=== PATIENT | female | born 1970 | race Caucasian/White ===

== ENCOUNTER 2018-07-31 18:07 | Emergency (ER) | payer OTHER ==
[2018-07-31 18:13] VITALS: BP 126/76; PULSE 91; TEMP 97.6; BMI 21.3
[2018-07-31] MEDS ORDERED: FAMOTIDINE 20 MG/50 ML IVPB 20 MG/50 ML MG IVPB ONE ×2 (19:01→19:06)
[2018-07-31] MEDS ORDERED: ONDANSETRON 4 MG/2 ML VIAL IVPB ONE (19:01)
[2018-07-31 19:02] LABS: BASO % 0.1 % (0-2.0); HEMOGLOBIN 14.7 GM/dl (10.7-15.3); LYMPH % 7.2 % (8-40); MCH 29.6 pg (25.7-33.7); MCHC 33.5 g/dl (32.0-36.0); MEAN CELL VOLUME 88.3 fl (80-96); MEAN PLT VOLUME 8.9 fl (7.5-11.1); MONO % 8.2 % (3.8-10.2); NEUT % 84.5 % (42.8-82.8); PLATELET COUNT 238 K/MM3 (134-434); RBC 4.98 M/mm3 (3.60-5.2); RDW 12.7 % (11.6-15.6); WHITE BLOOD COUNT 8.4 K/mm3 (4.0-10.8)
--- NOTE | 2018-07-31 19:02 | PDOC ---
History of Present Illness - General History Source: Patient Exam Limitations: No Limitations - History of Present Illness Initial Comments: 07/31/18 19:48 The patient is a 47 year old female with no pertinent past medical history who presents to the ED with complaints of epigastric pain, nausea, and vomiting since yesterday. She describes the pain as a crampy, gassy pain that is non- radiating and denies any modifying factors. She reports having loose stools today and reports associated tactile fevers and weakness earlier. Denies any recent travel or sick contacts but is concerned she may have gotten food poisoning. She denies any cough, SOB, chest pain. Reports associated dysuria but denies any other associated urinary complaints. <Carissa Ly - Last Filed: 07/31/18 19:48> - General History Source: Patient Exam Limitations: No Limitations <Javier Bhatti - Last Filed: 07/31/18 20:43> - General Chief Complaint: Nausea/Vomiting Stated Complaint: VOMITING,ABDOMINAL PAIN,HEAD ACHE,BODY ACHES Time Seen by Provider: 07/31/18 19:00 Past History <Carissa Ly - Last Filed: 07/31/18 19:48> - Past Medical History COPD: No Other medical history: pt denies - Surgical History Appendectomy: Yes - Suicide/Smoking/Psychosocial Hx Smoking History: Never smoked Have you smoked in the past 12 months: No Hx Alcohol Use: No Drug/Substance Use Hx: No Substance Use Type: None <Javier Bhatti - Last Filed: 07/31/18 20:43> - Past Medical History Allergies/Adverse Reactions: Allergies Allergy/AdvReac Type Severity Reaction Status Date / Time No Known Allergies Allergy Verified 07/31/18 18:08 Home Medications: Ambulatory Orders Acetaminophen [Tylenol] 650 mg PO Q4H PRN #20 tablet 07/31/18 Famotidine [Pepcid] 20 mg PO BID PRN #20 tablet 07/31/18 Ondansetron HCl [Zofran] 4 mg PO Q8H PRN #15 tablet 07/31/18 Review of Systems - Review of Systems Able to Perform ROS?: Yes Comments:: 07/31/18 19:49 GENERAL/CONSTITUTIONAL: (+) tactile fever, weakness No chills. HEAD, EYES, EARS, NOSE AND THROAT: No change in vision. No ear pain or discharge. No sore throat. CARDIOVASCULAR: No chest pain or shortness of breath. RESPIRATORY: No cough, wheezing, or hemoptysis. GASTROINTESTINAL: (+) nausea, vomiting, diarrhea, epigastric pain. No constipation. GENITOURINARY: (+) Dysuria. No frequency, or change in urination. MUSCULOSKELETAL: No joint or muscle swelling or pain. No neck or back pain. SKIN: No rash NEUROLOGIC: No headache, vertigo, loss of consciousness, or change in strength/ sensation. ENDOCRINE: No increased thirst. No abnormal weight change. HEMATOLOGIC/LYMPHATIC: No anemia, easy bleeding, or history of blood clots. ALLERGIC/IMMUNOLOGIC: No hives or skin allergy. All Other Systems: Reviewed and Negative <Carissa Ly - Last Filed: 07/31/18 19:48> *Physical Exam - Vital Signs Last Vital Signs Temp Pulse Resp BP Pulse Ox 97.6 F 91 H 18 126/76 99 07/31/18 18:08 07/31/18 18:08 07/31/18 18:08 07/31/18 18:08 07/31/18 18:08 - Physical Exam Comments: 07/31/18 19:54 GENERAL: Awake, alert, and fully oriented, in no acute distress HEAD: No signs of trauma EYES: PERRLA, EOMI, sclera anicteric, conjunctiva clear ENT: Auricles normal inspection, hearing grossly normal, nares patent, oropharynx clear without exudates. Moist mucosa NECK: Normal ROM, supple, no lymphadenopathy, JVD, or masses LUNGS: Breath sounds equal, clear to auscultation bilaterally. No wheezes, and no crackles HEART: Regular rate and rhythm, normal S1 and S2, no murmurs, rubs or gallops ABDOMEN: Soft, mild epigastric tenderness on palpation, negative colin's sign, normoactive bowel sounds. No guarding, no rebound. No masses EXTREMITIES: Normal range of motion, no edema. No clubbing or cyanosis. No cords, erythema, or tenderness NEUROLOGICAL: Cranial nerves II through XII grossly intact. Normal speech, normal gait SKIN: Warm, Dry, normal turgor, no rashes <Carissa Ly - Last Filed: 07/31/18 19:48> - Vital Signs Last Vital Signs Temp Pulse Resp BP Pulse Ox 97.6 F 91 H 18 126/76 99 07/31/18 18:08 07/31/18 18:08 07/31/18 18:08 07/31/18 18:08 07/31/18 18:08 <Javier Bhatti - Last Filed: 07/31/18 20:43> Heart Score/ECG Review #1 ECG reviewed & interpreted by me at: 19:20 07/31/18 19:23 NSR 87, no gab, TWI V2-V3, nonspecific ST changes V4-V5, normal axis, normal intervals, QTC 433 msec <Javier Bhatti - Last Filed: 07/31/18 20:43> ED Treatment Course - LABORATORY CBC & Chemistry Diagram: 07/31/18 18:41 07/31/18 18:41 - ADDITIONAL ORDERS Additional order review: Laboratory Results 07/31/18 07/31/18 07/31/18 19:09 18:41 18:31 Sodium 131 L Potassium 3.4 L Chloride 100 Carbon Dioxide 24 Anion Gap 7 L BUN 12 Creatinine 0.6 Creat Clearance w eGFR > 60 Random Glucose 127 H D Calcium 8.7 Total Bilirubin 1.2 H AST 31 ALT 53 H Alkaline Phosphatase 80 Troponin I < 0.03 Total Protein 8.0 Albumin 4.3 Urine Color Urine Appearance Urine pH Ur Specific Mclean Urine Protein Urine Glucose (UA) Urine Ketones Urine Blood Urine Nitrite Urine Bilirubin Urine Urobilinogen Ur Leukocyte Esterase Urine HCG, Qual Negative 07/31/18 18:30 Sodium Potassium Chloride Carbon Dioxide Anion Gap BUN Creatinine Creat Clearance w eGFR Random Glucose Calcium Total Bilirubin AST ALT Alkaline Phosphatase Troponin I Total Protein Albumin Urine Color Yellow Urine Appearance Clear Urine pH 5.5 Ur Specific Mclean >= 1.030 H Urine Protein 2+ H Urine Glucose (UA) Negative Urine Ketones 4+ H Urine Blood Negative Urine Nitrite Negative Urine Bilirubin 1+ H Urine Urobilinogen 0.2 Ur Leukocyte Esterase Negative Urine HCG, Qual 07/31/18 18:41 RBC 4.98 MCV 88.3 MCHC 33.5 RDW 12.7 MPV 8.9 Neutrophils % 84.5 H Lymphocytes % 7.2 L Monocytes % 8.2 Eosinophils % 0.0 Basophils % 0.1 - Medications Given in the ED: ED Medications Discontinued Medications Generic Name Dose Route Start Last Admin Trade Name Freq PRN Reason Stop Dose Admin Famotidine/Sodium Chloride 20 mg in 50 mls @ 100 mls/hr 07/31/18 19:01 19:19 Pepcid 20 Mg Premixed Ivpb - IVPB 07/31/18 19:30 100 mls/hr ONCE ONE Administration Ondansetron HCl 4 mg 07/31/18 19:01 07/31/18 19:19 Zofran Injection IVPB 07/31/18 19:02 4 mg ONCE ONE Administration <Carissa Ly - Last Filed: 07/31/18 19:48> - LABORATORY CBC & Chemistry Diagram: 07/31/18 18:41 07/31/18 18:41 - ADDITIONAL ORDERS Additional order review: Laboratory Results 07/31/18 18:31 Urine HCG, Qual Negative <Jackie Bhattiel - Last Filed: 07/31/18 20:43> Medical Decision Making - Medical Decision Making 07/31/18 19:21 A portion of this note was documented by scribe services under my direction. I have reviewed the details of the note, within reason, and agree with the documentation with the following case summary and management plan written by me. Patient treated in the ED. Nursing notes are reviewed and incorporated into the medical decision-making. Vital signs reviewed. Peripheral IV access obtained by the nurse, laboratory studies are drawn and sent, reviewed and interpreted by myself. Vital Signs Temp Pulse Resp BP Pulse Ox 97.6 F 91 H 18 126/76 99 07/31/18 18:08 07/31/18 18:08 07/31/18 18:08 07/31/18 18:08 07/31/18 18:08 47-year-old female with no past medical history presents with nausea, vomiting and loose stool since yesterday. Patient denies sick contacts or recent travels. Thinks she may have gotten ill from her food. Started developing some epigastric discomfort but no midsternal chest pain or shortness of breath. No dyspnea on exertion or diaphoresis. Does endorse some nausea. At one episode loose stools and believes she may have had tactile fevers at home. Reports some mild dysuria. Endorses decreased appetite. Because she felt generally weak she came into the ER. I suspect patient likely has gastritis versus gastroenteritis. Differential includes liver, pancreas, gallbladder pathology though probably less likely. We' ll give IV fluids check labs. Check for cystitis with urine analysis and reassess. 07/31/18 20:38 CBC, BMP 07/31/18 18:41 07/31/18 18:41 CMP Sodium 131 mmol/L (136-145) L 07/31/18 18:41 Potassium 3.4 mmol/L (3.5-5.1) L 07/31/18 18:41 Chloride 100 mmol/L (98-107) 07/31/18 18:41 Carbon Dioxide 24 mmol/L (22-28) 07/31/18 18:41 Anion Gap 7 MMOL/L (8-16) L 07/31/18 18:41 BUN 12 mg/dl (7-18) 07/31/18 18:41 Creatinine 0.6 mg/dl (0.6-1.3) 07/31/18 18:41 Creat Clearance w eGFR > 60 (>60) 07/31/18 18:41 Random Glucose 127 mg/dl (74-106) H D 07/31/18 18:41 Calcium 8.7 mg/dl (8.4-10.2) 07/31/18 18:41 Total Bilirubin 1.2 mg/dl (0.2-1.0) H 07/31/18 18:41 AST 31 U/L (10-42) 07/31/18 18:41 ALT 53 U/L (10-40) H 07/31/18 18:41 Alkaline Phosphatase 80 U/L (32-92) 07/31/18 18:41 Creatine Kinase 85 IU/L (26-192) 07/31/18 18:41 Troponin I < 0.03 ng/ml (0.00-0.06) 07/31/18 19:09 Total Protein 8.0 g/dl (6.4-8.3) 07/31/18 18:41 Albumin 4.3 g/dl (3.5-5.0) 07/31/18 18:41 Lipase 302 U/L (73-393) 07/31/18 18:41 Urine Test Results Urine Color Yellow 07/31/18 18:30 Urine Appearance Clear 07/31/18 18:30 Urine pH 5.5 (4.5-8) 07/31/18 18:30 Ur Specific Mclean >= 1.030 (1.005-1.025) H 07/31/18 18:30 Urine Protein 2+ (NEGATIVE) H 07/31/18 18:30 Urine Glucose (UA) Negative (NEGATIVE) 07/31/18 18:30 Urine Ketones 4+ (NEGATIVE) H 07/31/18 18:30 Urine Blood Negative (NEGATIVE) 07/31/18 18:30 Urine Nitrite Negative (NEGATIVE) 07/31/18 18:30 Urine Bilirubin 1+ (NEGATIVE) H 07/31/18 18:30 Ur Leukocyte Esterase Negative (NEGATIVE) 07/31/18 18:30 Urine RBC 0-2 /hpf (0-3) 07/31/18 18:30 Urine WBC 2-4 (0-5) 07/31/18 18:30 Urine Bacteria Few /hpf (NEGATIVE) 07/31/18 18:30 Urine test negative. The patient reports that she feels significantly better. Blood work is unremarkable but urine shows significant evidence of dehydration. Patient was given 2L of IVF with significant improvement of symptoms. Pt would like to go home. Results given to her. I explained that she should take her ECG to her doctor for follow up as there are nonspecific findings. Pt verbalizes understanding and agrees with plan. Discharge diagnosis: gastritis. I discussed the physical exam findings, ancillary test results and final diagnoses with the patient. I answered all of the patient's questions. The patient was satisfied with the care received and felt comfortable with the discharge plan and treatment plan. The patient will call their primary care physician within 24 hours to arrange follow-up and will return to the Emergency Department with any new, persistant or worsening symptoms. <Javier Bhatti - Last Filed: 07/31/18 20:43> *DC/Admit/Observation/Transfer - Attestations Scribe Attestion: 07/31/18 19:55 Documentation prepared by Carissa Ly, acting as medical delivery driver for Javier Bhatti MD. <Carissa Ly - Last Filed: 07/31/18 19:48> - Discharge Dispostion Decision to Admit order: No <Javier Bhatti - Last Filed: 07/31/18 20:43> Diagnosis at time of Disposition: Gastritis Qualifiers: Gastritis type: unspecified gastritis Chronicity: acute Gastritis bleeding: without bleeding Qualified Code(s): K29.00 - Acute gastritis without bleeding - Discharge Dispostion Disposition: HOME Condition at time of disposition: Improved - Prescriptions Prescriptions: Acetaminophen [Tylenol] 650 mg PO Q4H PRN #20 tablet PRN Reason: Pain/Fever Famotidine [Pepcid] 20 mg PO BID PRN #20 tablet PRN Reason: GERD Ondansetron HCl [Zofran] 4 mg PO Q8H PRN #15 tablet PRN Reason: Vomiting - Patient Instructions Printed Discharge Instructions: DI for Gastritis Additional Instructions: Your blood work is unremarkable. However, you are very dehydrated. Drink plenty of fluids and rest. It may take several more days before your symptoms improve. You have nonspecific findings on your EKG. At this time, you just need to make an appointment with your doctor and follow up. You may take zofran, pepcid, and tylenol if you have worsening symptoms. If you have uncontrollable abdominal pain, chest pain or difficulty breathing, please return to the ER. - Post Discharge Activity Forms/Work/School Notes: Back to Work
[2018-07-31 19:05] LABS: ALBUMIN 4.3 g/dl (3.5-5.0); ALK PHOS 80 U/L (32-92); ANION GAP 7 MMOL/L (8-16); BILIRUBIN,TOTAL 1.2 mg/dl (0.2-1.0); BLOOD UREA NITROGEN 12 mg/dl (7-18); CALCIUM 8.7 mg/dl (8.4-10.2); CHLORIDE 100 mmol/L (98-107); CO2 24 mmol/L (22-28); CREATININE 0.6 mg/dl (0.6-1.3); GLUCOSE,RANDOM 127 mg/dl (74-106); POTASSIUM 3.4 mmol/L (3.5-5.1); SGOT/AST 31 U/L (10-42); SGPT/ALT 53 U/L (10-40); SODIUM 131 mmol/L (136-145)
[2018-07-31] MEDS ORDERED: ONDANSETRON 4 MG/2 ML VIAL ONE ×3 (19:08→19:11)
[2018-07-31 19:11] LABS: PH,URINE 5.5 (4.5-8); URINE APPEARANCE Clear; URINE BILIRUBIN 1+ (NEGATIVE); URINE COLOR Yellow; URINE GLUCOSE (UA) Negative (NEGATIVE); URINE KETONE 4+ (NEGATIVE); URINE LEUK ESTERASE Negative (NEGATIVE); URINE NITRITE Negative (NEGATIVE); URINE PROTEIN 2+ (NEGATIVE); URINE UROBILINOGEN 0.2 (0.2-1.0)
[2018-07-31] MEDS ORDERED: SODIUM CHLORIDE 1,000 ML IV STA (19:47)
[2018-07-31 19:52] LABS: URINE RBC 0-2 /hpf (0-3)
[2018-07-31 19:53] LABS: CALCIUM OXALATE CRYSTALS FEW /hpf (NONE SEEN); URINE BACTERIA FEW /hpf (NEGATIVE)
[2018-07-31 20:22] LABS: LIPASE 302 U/L (73-393)
--- NOTE | 2018-08-02 11:43 | EKG ---
Test Reason : Blood Pressure : / mmHG Vent. Rate : 087 BPM Atrial Rate : 087 BPM P-R Int : 164 ms QRS Dur : 090 ms QT Int : 360 ms P-R-T Axes : 075 087 055 degrees QTc Int : 433 ms POOR DATA QUALITY, INTERPRETATION MAY BE ADVERSELY AFFECTED NORMAL SINUS RHYTHM WITH SINUS ARRHYTHMIA NONSPECIFIC ST AND T WAVE ABNORMALITY ABNORMAL ECG NO PREVIOUS ECGS AVAILABLE Confirmed by MASSIEL GARAY, TENA ([id number]) on 08/02/2018 11:43:04 AM Referred By: KOBY Confirmed By:TENA RANKIN MD
== END 2018-07-31 20:47 | disposition home or self-care (01) ==
LOC: FER 18:07
PROC: 3E033GC Introduction of Other Therapeutic Substance into Peripheral Vein, Percutaneous Approach (ICD-10-PCS; principal; 2018-07-31)
PROC: 3E0337Z Introduction of Electrolytic and Water Balance Substance into Peripheral Vein, Percutaneous Approach (ICD-10-PCS; 2018-07-31)
DX: K29.00 Acute gastritis without bleeding (principal)
CPT/HCPCS: 36415; 80053; 81003; 81015; 82550; 83690; 84484; 84703; 85025; 87077; 87086; 93005; 99283-25; J7030

== ENCOUNTER 2018-08-04 18:17 | Emergency (ER) | payer OTHER ==
[2018-08-04 18:46] VITALS: BP 117/58; PULSE 70; BMI 21.7
[2018-08-04 19:06] VITALS: TEMP 97.9
--- NOTE | 2018-08-04 19:19 | PDOC ---
History of Present Illness - General History Source: Patient Exam Limitations: No Limitations - History of Present Illness Initial Comments: 08/04/18 19:41 The patient is a 47 year old female with no significant past medical history, who presents to the emergency room today complaining of epigastric abdominal pain over the past 4 days and multiple episodes of vomiting and diarrhea this evening. The patient was seen in the ED on 07/31/18 for similar symptoms and was discharged for gastritis - instructed to take pepcid, zofran, and tylenol. She reports multiple episodes of nonbloody nonbilious vomiting (last episode at 5: 45pm) and multiple episodes of diarrhea (last episode approx 5 min ago) that began this evening at work. Denies nausea. Denies fever. Denies recent travel or sick contact. Allergies: Seasonal <Sheba Nieves - Last Filed: 08/04/18 19:48> <Maisha Sommers - Last Filed: 08/05/18 04:20> - General Chief Complaint: Vomiting/Diarrhea Stated Complaint: VOMITING, DIARRHEA Time Seen by Provider: 08/04/18 19:19 Past History <Sheba Nieves - Last Filed: 08/04/18 19:48> - Past Medical History COPD: No GI Disorders: Yes (GASTRITIS) - Surgical History Appendectomy: Yes - Suicide/Smoking/Psychosocial Hx Smoking History: Never smoked Have you smoked in the past 12 months: No Information on smoking cessation initiated: No Hx Alcohol Use: No Drug/Substance Use Hx: No Substance Use Type: None <Maisha Sommers - Last Filed: 08/05/18 04:20> - Past Medical History Allergies/Adverse Reactions: Allergies Allergy/AdvReac Type Severity Reaction Status Date / Time No Known Allergies Allergy Verified 08/04/18 18:18 Home Medications: Ambulatory Orders Acetaminophen [Tylenol] 650 mg PO Q4H PRN #20 tablet 07/31/18 Famotidine [Pepcid] 20 mg PO BID PRN #20 tablet 07/31/18 Ondansetron HCl [Zofran] 4 mg PO Q8H PRN #15 tablet 07/31/18 Cephalexin [Keflex] 500 mg PO BID #10 capsule 08/04/18 Ondansetron [Zofran Odt -] 4 mg SL BID PRN #10 od.tablet 08/04/18 Pantoprazole Sodium [Protonix -] 20 mg PO DAILY #14 tablet.ec 08/04/18 Review of Systems - Review of Systems Able to Perform ROS?: Yes Comments:: 08/04/18 19:42 GENERAL/CONSTITUTIONAL: No fever or chills. No weakness. HEAD, EYES, EARS, NOSE AND THROAT: No change in vision. No ear pain or discharge. No sore throat. CARDIOVASCULAR: No chest pain or shortness of breath. RESPIRATORY: No cough, wheezing, or hemoptysis. GASTROINTESTINAL: +epigastric abdominal pain, +vomiting, +diarrhea.No nausea or constipation. GENITOURINARY: No dysuria, frequency, or change in urination. MUSCULOSKELETAL: No joint or muscle swelling or pain. No neck or back pain. SKIN: No rash NEUROLOGIC: No headache, vertigo, loss of consciousness, or change in strength/ sensation. ENDOCRINE: No increased thirst. No abnormal weight change. HEMATOLOGIC/LYMPHATIC: No anemia, easy bleeding, or history of blood clots. ALLERGIC/IMMUNOLOGIC: No hives or skin allergy. <Sheba Nieves - Last Filed: 08/04/18 19:48> *Physical Exam - Vital Signs Last Vital Signs Temp Pulse Resp BP Pulse Ox 97.9 F 70 18 117/58 L 96 08/04/18 18:17 08/04/18 18:17 08/04/18 18:17 08/04/18 18:17 08/04/18 18:17 - Physical Exam Comments: 08/04/18 19:42 GENERAL: Awake, alert, and fully oriented, in no acute distress HEAD: No signs of trauma EYES: PERRLA, EOMI, sclera anicteric, +Erythematous conjunctiva bilaterally ENT: Auricles normal inspection, hearing grossly normal, nares patent, oropharynx clear without exudates. +dry mucous membranes NECK: Normal ROM, supple, no lymphadenopathy, JVD, or masses LUNGS: Breath sounds equal, clear to auscultation bilaterally. No wheezes, and no crackles HEART: Regular rate and rhythm, normal S1 and S2, no murmurs, rubs or gallops ABDOMEN: Soft, +mild epigastric tenderness. normoactive bowel sounds. No guarding, no rebound. No masses EXTREMITIES: Normal range of motion, no edema. No clubbing or cyanosis. No cords, erythema, or tenderness NEUROLOGICAL: Cranial nerves II through XII grossly intact. Normal speech, normal gait SKIN: Warm, Dry, normal turgor, no rashes or lesions noted. <EzequielSheba - Last Filed: 08/04/18 19:48> - Vital Signs Last Vital Signs Temp Pulse Resp BP Pulse Ox 97.9 F 70 18 117/58 L 96 08/04/18 18:17 08/04/18 18:17 08/04/18 18:17 08/04/18 18:17 08/04/18 18:17 <Maisha Sommers - Last Filed: 08/05/18 04:20> ED Treatment Course - LABORATORY CBC & Chemistry Diagram: 08/04/18 19:00 08/04/18 19:00 - ADDITIONAL ORDERS Additional order review: Laboratory Results 08/04/18 19:00 Sodium 136 Potassium 3.0 L Chloride 98 Carbon Dioxide 28 Anion Gap 10 BUN 8 Creatinine 0.6 Creat Clearance w eGFR > 60 Random Glucose 143 H Calcium 9.1 Total Bilirubin 0.6 AST 26 ALT 36 D Alkaline Phosphatase 78 Total Protein 7.6 Albumin 4.1 <ConradoSheba cutler - Last Filed: 08/04/18 19:48> - LABORATORY CBC & Chemistry Diagram: 08/04/18 19:00 08/04/18 19:00 <Maisha Sommers - Last Filed: 08/05/18 04:20> Progress Note - Progress Note Progress Note: Documentation has been prepared under my direction and personally reviewed by me in its entirety. I attest that this documented accurately reflects all work, treatment, procedures and medical decision making performed by me. <Maisha Sommers - Last Filed: 08/05/18 04:20> Medical Decision Making - Medical Decision Making As noted above, this 47-year-old woman presents with recurrent nausea/vomiting/ diarrhea. Patient was seen with similar symptoms here 4 days ago. Symptoms recurred over the last 48 hours. Exam as noted. Patient received IV fluid hydration (normal saline) as well as Protonix 40 mg IV for burning epigastric pain. Laboratory evaluation notable for potassium level 3.0; otherwise, values were essentially normal. Clinical presentation most consistent with viral gastroenteritis Patient received 20 mEq KCl IV (2 runs of 10 mEq). Patient felt much improved after hydration, Protonix IV and potassium supplementation. Patient discharged with instructions to continue clear liquids and advance diet cautiously. Protonix 20 mg daily prescribed for the next 2 weeks. Patient should rest and not work for the next 2 days (work documentation provided). <Maisha Sommers - Last Filed: 08/05/18 04:20> *DC/Admit/Observation/Transfer - Attestations Scribe Attestion: 08/04/18 19:43 Documentation prepared by ELISSA Hurley, acting as medical record assistant for Maisha Sommers MD. <Sheba Nieves - Last Filed: 08/04/18 19:48> <Maisha Sommers - Last Filed: 08/05/18 04:20> Diagnosis at time of Disposition: Gastroenteritis - Discharge Dispostion Disposition: HOME Condition at time of disposition: Stable - Prescriptions Prescriptions: Ondansetron [Zofran Odt -] 4 mg SL BID PRN #10 od.tablet PRN Reason: Nausea Pantoprazole Sodium [Protonix -] 20 mg PO DAILY #14 tablet.ec - Patient Instructions Printed Discharge Instructions: Viral Gastroenteritis Additional Instructions: clear liquids, advance diet cautiously continue Zofran ODT as needed for nausea Protonix 20mg daily return to ER if vomiting recurs followup with your doctor on Tuesday, Aug 07 No work for the next 2 days - Post Discharge Activity Forms/Work/School Notes: Back to Work
[2018-08-04] MEDS ORDERED: PANTOPRAZOLE SODIUM 40 MG VIAL IVPB ONE (19:35)
[2018-08-04 19:37] LABS: ALBUMIN 4.1 g/dl (3.5-5.0); ALK PHOS 78 U/L (32-92); ANION GAP 10 MMOL/L (8-16); BILIRUBIN,TOTAL 0.6 mg/dl (0.2-1.0); BLOOD UREA NITROGEN 8 mg/dl (7-18); CALCIUM 9.1 mg/dl (8.4-10.2); CHLORIDE 98 mmol/L (98-107); CO2 28 mmol/L (22-28); CREATININE 0.6 mg/dl (0.6-1.3); GLUCOSE,RANDOM 143 mg/dl (74-106); SGOT/AST 26 U/L (10-42); SGPT/ALT 36 U/L (10-40); SODIUM 136 mmol/L (136-145); TOT PROT 7.6 g/dl (6.4-8.3)
[2018-08-04] MEDS ORDERED: PANTOPRAZOLE SODIUM 40 MG VIAL ONE (19:38)
[2018-08-04] MEDS ORDERED: KCL 10 MEQ IVPB 10 MEQ/100 ML INFUS.BAG IVPB ONE ×2 (19:57→20:58)
[2018-08-04] MEDS: KCL 10 MEQ IVPB 10 MEQ/100 ML INFUS.BAG IVPB SCH ×2 (19:59→21:01)
[2018-08-04 20:58] LABS: BASO % 0.3 % (0-2.0); HEMATOCRIT 39.3 % (32.4-45.2); HEMOGLOBIN 13.4 GM/dL (10.7-15.3); LYMPH % 14.5 % (8-40); MCH 29.5 pg (25.7-33.7); MEAN CELL VOLUME 86.6 fl (80-96); MEAN PLT VOLUME 9.2 fl (7.5-11.1); MONO % 6.1 % (3.8-10.2); NEUT % 79.1 % (42.8-82.8); PLATELET COUNT 276 K/MM3 (134-434); RBC 4.54 M/mm3 (3.60-5.2); RDW 13.4 % (11.6-15.6); WHITE BLOOD COUNT 9.2 K/mm3 (4.0-10.0)
== END 2018-08-05 00:04 | disposition home or self-care (01) ==
LOC: FER 18:17
PROC: 3E033GC Introduction of Other Therapeutic Substance into Peripheral Vein, Percutaneous Approach (ICD-10-PCS; principal; 2018-08-04)
DX: K52.9 Noninfective gastroenteritis and colitis, unspecified (principal)
CPT/HCPCS: 36415; 80053; 85025; 99283-25

== ENCOUNTER 2018-08-12 22:23 | Inpatient (IN) | payer OTHER ==
--- NOTE | 2018-08-12 22:34 | PDOC ---
History of Present Illness - General Chief Complaint: Pain Stated Complaint: DIARRHEA, VOMITING Time Seen by Provider: 08/12/18 22:34 History Source: Patient Exam Limitations: No Limitations - History of Present Illness Initial Comments: 08/12/18 22:45 47 year old female with no past medical history presents to Emergency Department for epigastric pain since today. She states her pain is non-radiating , intermittent, radiating to her suprapubic area, no aggravating factors, alleviated by zofran/vomiting. She admits to nausea, vomiting, diarrhea, chest tightness. Denies fever, chills, blood in stool, hematemesis, cough, shortness of breath, weakness, numbness, tingling, visual changes, headache, palpitations. This is her third visit for similar symptoms. 07/31/18 - she presented to the emergency department complaining of epigastric pain, nausea, vomiting, diarrhea. Labs were normal. EKg showed nonspecific changes. UA showed UTI. Pt was discharged with pepcid, zofran, tylenol, keflex. Urine culture grew: Streptococcus Viridans, last dose of Keflex yesterday, pt states she did not miss any doses. 08/04/18 - she presented to the emergency department complaining of epigastric pain, nausea, vomiting. Potassium was 3.0. Potassium was repleted with 20 mEq Kcl IV in two 10 mEq doses. Pt was discharged on protonix and zofran. Abdominal Ultrasound performed 08/10/18 was normal. Allergies - NKDA Past History - Past Medical History Allergies/Adverse Reactions: Allergies Allergy/AdvReac Type Severity Reaction Status Date / Time No Known Allergies Allergy Verified 08/12/18 22:28 Home Medications: Ambulatory Orders NK [No Known Home Medication] 08/13/18 COPD: No GI Disorders: Yes (GASTRITIS) - Surgical History Appendectomy: Yes - Suicide/Smoking/Psychosocial Hx Smoking History: Never smoked Have you smoked in the past 12 months: No Hx Alcohol Use: No Drug/Substance Use Hx: No Substance Use Type: None Review of Systems - Review of Systems Able to Perform ROS?: Yes Comments:: 08/12/18 22:56 General: admits to generalized weakness. denies fever, chills, night sweats. HEENT: denies sore throat, rhinorrhea, ear pain. Heart: admits to chest tightness. denies chest pain, palpitations, syncope, lower extremity swelling, diaphoresis. Respiratory: denies shortness of breath, cough, sputum production, hemoptysis. Abdomen: admits to abdominal pain, nausea, vomiting, diarrhea. denies constipation, blood in stool. : denies dysuria, increased urinary frequency, hematuria, urinary incontinence , flank pain. Back: denies back pain. Musculoskeletal: denies joint pain, muscle pain, joint swelling. Neurological: denies headache, dizziness, numbness, tingling, weakness. Skin: denies rash, laceration, abrasion. *Physical Exam - Vital Signs Last Vital Signs Temp Pulse Resp BP Pulse Ox 97.9 F 122 H 18 85/53 L 97 08/12/18 22:25 08/12/18 22:25 08/12/18 22:25 08/12/18 22:25 08/12/18 22:25 - Physical Exam Comments: 08/12/18 22:57 Constitutional: Well-nourished, Well-developed, appearing stated age. HEENT: head is normocephalic, atraumatic. EOMI. PERRLA. hair loss to bilateral temples. Neck: supple. Full ROM. Heart: regular rhythm. no murmurs, rubs or gallops. Lungs: clear to auscultation bilaterally. no crackles, rhonchi or wheezing. no stridor. Abdomen: soft, nontender. non-distended. normal bowel sounds. no rebound, guarding, masses. Back: no CVA tenderness bilaterally. Extremities: Peripheral pulses intact. No lower extremity edema. Neurological: CN 2-12 grossly intact. Moves all four extremities. Psych: awake, alert, oriented x3. Follows commands. Answers questions appropriately. Heart Score/ECG Review - ECG Impressions Comment:: 08/13/18 00:35 EKg performed at 2358 - rate 115, regular, right axis, normal intervals, flipped T in III/aVF/V4. ED Treatment Course - LABORATORY CBC & Chemistry Diagram: 08/13/18 09:18 08/13/18 09:18 Medical Decision Making - Medical Decision Making 08/12/18 23:28 47 year old female with no past medical history presents to Emergency Department for epigastric pain since today. She states her pain is non-radiating , intermittent, radiating to her suprapubic area, no aggravating factors, alleviated by zofran/vomiting. She admits to nausea, vomiting, diarrhea, chest tightness. Denies fever, chills, blood in stool, hematemesis, cough, shortness of breath, weakness, numbness, tingling, visual changes, headache, palpitations. This is her third visit for similar symptoms. 07/31/18 - she presented to the emergency department complaining of epigastric pain, nausea, vomiting, diarrhea. Labs were normal. EKg showed nonspecific changes. UA showed UTI. Pt was discharged with pepcid, zofran, tylenol, keflex. Urine culture grew: Streptococcus Viridans, last dose of Keflex yesterday, pt states she did not miss any doses. 08/04/18 - she presented to the emergency department complaining of epigastric pain, nausea, vomiting. Potassium was 3.0. Potassium was repleted with 20 mEq Kcl IV in two 10 mEq doses. Pt was discharged on protonix and zofran. Abdominal Ultrasound performed 08/10/18 was normal. Initial Vital Signs Temp Pulse Resp BP Pulse Ox 97.9 F 122 H 18 85/53 L 97 08/12/18 22:25 08/12/18 22:25 08/12/18 22:25 08/12/18 22:25 08/12/18 22:25 Afebrile. Tachycardic, likely secondary to dehydration. Hypotensive, likely secondary to dehydration. No hypoxia on room air. 08/13/18 00:16 CBC WBC 13.9 K/mm3 (4.0-10.0) H 08/12/18 22:44 RBC 5.16 M/mm3 (3.60-5.2) 08/12/18 22:44 Hgb 15.1 GM/dL (10.7-15.3) 08/12/18 22:44 Hct 44.6 % (32.4-45.2) 08/12/18 22:44 MCV 86.6 fl (80-96) 08/12/18 22:44 MCH 29.4 pg (25.7-33.7) 08/12/18 22:44 MCHC 33.9 g/dl (32.0-36.0) 08/12/18 22:44 RDW 13.5 % (11.6-15.6) 08/12/18 22:44 Plt Count 327 K/MM3 (134-434) 08/12/18 22:44 MPV 8.3 fl (7.5-11.1) 08/12/18 22:44 Absolute Neuts (auto) 12.6 K/mm3 (1.5-8.0) H 08/12/18 22:44 Neutrophils % 90.5 % (42.8-82.8) H 08/12/18 22:44 Lymphocytes % 5.5 % (8-40) L D 08/12/18 22:44 Monocytes % 3.7 % (3.8-10.2) L 08/12/18 22:44 Eosinophils % 0.1 % (0-4.5) D 08/12/18 22:44 Basophils % 0.2 % (0-2.0) 08/12/18 22:44 Nucleated RBC % 0 % (0-0) 08/12/18 22:44 Leukocytosis with left shift. CMP Sodium 136 mmol/L (136-145) 08/12/18 22:44 Potassium 4.3 mmol/L (3.5-5.1) 08/12/18 22:44 Chloride 100 mmol/L (98-107) 08/12/18 22:44 Carbon Dioxide 29 mmol/L (21-32) 08/12/18 22:44 Anion Gap 6 MMOL/L (8-16) L 08/12/18 22:44 BUN 10 mg/dL (7-18) 08/12/18 22:44 Creatinine 0.7 mg/dL (0.55-1.3) 08/12/18 22:44 Creat Clearance w eGFR > 60 (>60) 08/12/18 22:44 Random Glucose 125 mg/dL (74-106) H 08/12/18 22:44 Calcium 8.9 mg/dL (8.5-10.1) 08/12/18 22:44 Total Bilirubin 0.7 mg/dL (0.2-1) 08/12/18 22:44 AST 25 U/L (15-37) 08/12/18 22:44 ALT 29 U/L (13-61) 08/12/18 22:44 Alkaline Phosphatase 84 U/L (45-117) 08/12/18 22:44 Total Protein 8.4 g/dl (6.4-8.2) H 08/12/18 22:44 Albumin 4.0 g/dl (3.4-5.0) 08/12/18 22:44 Lipase 398 U/L (73-393) H 08/12/18 22:44 No electrolyte abnormalities. Lipase elevated, 398. Urine test negative. 08/13/18 00:19 Repeat vitals: Vital Signs Temperature 98.2 F 08/13/18 00:14 Pulse Rate 89 08/13/18 00:14 Respiratory Rate 17 08/13/18 00:14 Blood Pressure 106/53 L 08/13/18 00:14 O2 Sat by Pulse Oximetry (%) 98 08/13/18 00:14 Afebrile. Tachycardia resolved with IV fluid hydration. Hypotension improving, will continue to hydrate with IV fluids. No hypoxia on room air. 08/13/18 00:53 I signed the patient out to Dr. Cartagena, who will assume care for the patient while she is in the Emergency Department. *DC/Admit/Observation/Transfer Diagnosis at time of Disposition: Unable to eat, Weight loss Abdominal pain Qualifiers: Abdominal location: unspecified location Qualified Code(s): R10.9 - Unspecified abdominal pain Vomiting Qualifiers: Vomiting type: unspecified Vomiting Intractability: non-intractable Nausea presence: with nausea Qualified Code(s): R11.2 - Nausea with vomiting, unspecified Pancreatitis Qualifiers: Chronicity: acute Pancreatitis type: unspecified pancreatitis type Acute pancreatitis complication: unspecified Qualified Code(s): K85.90 - Acute pancreatitis without necrosis or infection, unspecified - Discharge Dispostion Condition at time of disposition: Guarded Decision to Admit order: Yes - Referrals - Patient Instructions - Post Discharge Activity
[2018-08-12] MEDS ORDERED: ACETAMINOPHEN 1000 MG/100 ML VIAL (NON FORMULARY) IVPB ONE (22:45)
[2018-08-12] MEDS ORDERED: SODIUM CHLORIDE 1,000 ML IV STA (22:45)
[2018-08-12] MEDS ORDERED: ONDANSETRON 4 MG/2 ML VIAL IVPUSH ONE (22:45)
[2018-08-12] MEDS ORDERED: ACETAMINOPHEN INJECTION 100 ML IVPB ONE (22:54)
[2018-08-12] MEDS ORDERED: ONDANSETRON 4 MG/2 ML VIAL ONE ×2 (22:54→22:56)
[2018-08-12 22:58] LABS: BASO % 0.2 % (0-2.0); EOS % 0.1 % (0-4.5); HEMATOCRIT 44.6 % (32.4-45.2); HEMOGLOBIN 15.1 GM/dL (10.7-15.3); LYMPH % 5.5 % (8-40); MCH 29.4 pg (25.7-33.7); MCHC 33.9 g/dl (32.0-36.0); MEAN CELL VOLUME 86.6 fl (80-96); MEAN PLT VOLUME 8.3 fl (7.5-11.1); MONO % 3.7 % (3.8-10.2); NEUT % 90.5 % (42.8-82.8); PLATELET COUNT 327 K/MM3 (134-434); RBC 5.16 M/mm3 (3.60-5.2); RDW 13.5 % (11.6-15.6); WHITE BLOOD COUNT 13.9 K/mm3 (4.0-10.0)
[2018-08-12 23:23] LABS: ALK PHOS 84 U/L (45-117); ANION GAP 6 MMOL/L (8-16); BILIRUBIN,TOTAL 0.7 mg/dL (0.2-1); BLOOD UREA NITROGEN 10 mg/dL (7-18); CALCIUM 8.9 mg/dL (8.5-10.1); CHLORIDE 100 mmol/L (98-107); CO2 29 mmol/L (21-32); CREATININE 0.7 mg/dL (0.55-1.3); GLUCOSE,RANDOM 125 mg/dL (74-106); LIPASE 398 U/L (73-393); POTASSIUM 4.3 mmol/L (3.5-5.1); SGOT/AST 25 U/L (15-37); SGPT/ALT 29 U/L (13-61); SODIUM 136 mmol/L (136-145); TOT PROT 8.4 g/dl (6.4-8.2)
[2018-08-13] MEDS ORDERED: SODIUM CHLORIDE 1,000 ML IV STA (00:20)
--- NOTE | 2018-08-13 00:55 | PDOC ---
*Physical Exam - Vital Signs Last Vital Signs Temp Pulse Resp BP Pulse Ox 98.2 F 89 17 106/53 L 98 08/13/18 00:14 08/13/18 00:14 08/13/18 00:14 08/13/18 00:14 08/13/18 00:14 08/13/18 00:50 Care endorsed to me by Dr. Son at the end of her shift. 47 YOF with no PMH, seen on 07/31 for epigastric pain, n/v/d, given GI meds, diagnosed with UTI, given a course of Keflex and finished yesterday. Returned to ED with same AP/n/ v on 08/04, given GI medications, DC'ed home. Returned today with same epigastric pain, n/v/d. EKG showing sinus tach, rate 115, right axis deviation, right atrial dilatation pattern, [id number]. no MEGAN. Received IVF, Zofran, now awaiting CT scan, RUQ US. Likely needs admitted given bouncebacks and abnormal EKG. ED Treatment Course - LABORATORY CBC & Chemistry Diagram: 08/12/18 22:44 08/12/18 22:44 - ADDITIONAL ORDERS Additional order review: Laboratory Results 08/12/18 08/12/18 08/12/18 23:12 23:12 22:44 Sodium Potassium Chloride Carbon Dioxide Anion Gap BUN Creatinine Creat Clearance w eGFR Random Glucose Calcium Total Bilirubin AST ALT Alkaline Phosphatase Total Protein Albumin Lipase TSH 0.98 Urine Color Cancelled Urine Appearance Cancelled Urine pH Cancelled Ur Specific [place] Cancelled Urine Protein Cancelled Urine Glucose (UA) Cancelled Urine Ketones Cancelled Urine Blood Cancelled Urine Nitrite Cancelled Urine Bilirubin Cancelled Urine Urobilinogen Cancelled Ur Leukocyte Esterase Cancelled Urine HCG, Qual Negative 08/12/18 22:44 Sodium 136 Potassium 4.3 Chloride 100 Carbon Dioxide 29 Anion Gap 6 L BUN 10 Creatinine 0.7 Creat Clearance w eGFR > 60 Random Glucose 125 H Calcium 8.9 Total Bilirubin 0.7 AST 25 ALT 29 Alkaline Phosphatase 84 Total Protein 8.4 H Albumin 4.0 Lipase 398 H TSH Urine Color Urine Appearance Urine pH Ur Specific [place] Urine Protein Urine Glucose (UA) Urine Ketones Urine Blood Urine Nitrite Urine Bilirubin Urine Urobilinogen Ur Leukocyte Esterase Urine HCG, Qual 08/12/18 22:44 RBC 5.16 MCV 86.6 MCHC 33.9 RDW 13.5 MPV 8.3 Neutrophils % 90.5 H Lymphocytes % 5.5 L D Monocytes % 3.7 L Eosinophils % 0.1 D Basophils % 0.2 - Medications Given in the ED: ED Medications Discontinued Medications Generic Name Dose Route Start Last Admin Trade Name Gayatri PRN Reason Stop Dose Admin Acetaminophen 1,000 mg 08/12/18 22:45 08/12/18 23:00 Ofirmev Injection - IVPB 08/12/18 22:46 1,000 mg ONCE ONE Administration Sodium Chloride 1,000 mls @ 1,000 mls/hr 08/12/18 22:45 08/12/18 23:00 Normal Saline - IV 08/12/18 23:44 1,000 mls/hr ASDIR STA Administration Ondansetron HCl 4 mg 08/12/18 22:45 08/12/18 23:00 Zofran Injection IVPUSH 08/12/18 22:46 4 mg ONCE ONE Administration Medical Decision Making - Medical Decision Making Vital Signs Temperature 98.2 F 08/13/18 00:14 Pulse Rate 89 08/13/18 00:14 Respiratory Rate 17 08/13/18 00:14 Blood Pressure 106/53 L 08/13/18 00:14 O2 Sat by Pulse Oximetry (%) 98 08/13/18 00:14 08/13/18 02:36 Patient does not want contrast CT, concerned about risks. Ordered is non-con CT A/P. Gave urine sample for UA (first was insufficient quantity). 08/13/18 03:13 CT images back for the patient. Bladder looks enlarged for the patient having recently urinated (she did <10 minutes before images taken). Zosyn ordered as there is possibility of RLL PNA based on finding of mild consolidation on CT. Also nonspecific pelvic free fluid on CT. Laboratory Tests 08/12/18 08/12/18 08/12/18 22:44 22:44 22:44 WBC 13.9 H RBC 5.16 Hgb 15.1 Hct 44.6 MCV 86.6 MCH 29.4 MCHC 33.9 RDW 13.5 Plt Count 327 MPV 8.3 Absolute Neuts (auto) 12.6 H Neutrophils % 90.5 H Lymphocytes % 5.5 L D Monocytes % 3.7 L Eosinophils % 0.1 D Basophils % 0.2 Nucleated RBC % 0 Sodium 136 Potassium 4.3 Chloride 100 Carbon Dioxide 29 Anion Gap 6 L BUN 10 Creatinine 0.7 Creat Clearance w eGFR > 60 Random Glucose 125 H Calcium 8.9 Total Bilirubin 0.7 AST 25 ALT 29 Alkaline Phosphatase 84 Total Protein 8.4 H Albumin 4.0 Lipase 398 H TSH 0.98 Urine Color Urine Appearance Urine pH Ur Specific [place] Urine Protein Urine Glucose (UA) Urine Ketones Urine Blood Urine Nitrite Urine Bilirubin Urine Urobilinogen Ur Leukocyte Esterase Urine HCG, Qual 08/12/18 08/12/18 08/13/18 23:12 23:12 02:20 WBC RBC Hgb Hct MCV MCH MCHC RDW Plt Count MPV Absolute Neuts (auto) Neutrophils % Lymphocytes % Monocytes % Eosinophils % Basophils % Nucleated RBC % Sodium Potassium Chloride Carbon Dioxide Anion Gap BUN Creatinine Creat Clearance w eGFR Random Glucose Calcium Total Bilirubin AST ALT Alkaline Phosphatase Total Protein Albumin Lipase TSH Urine Color Cancelled Colorless Urine Appearance Cancelled Clear Urine pH Cancelled 7.0 Ur Specific [place] Cancelled 1.001 L Urine Protein Cancelled Negative Urine Glucose (UA) Cancelled Negative Urine Ketones Cancelled Negative Urine Blood Cancelled Negative Urine Nitrite Cancelled Negative Urine Bilirubin Cancelled Negative Urine Urobilinogen Cancelled Negative Ur Leukocyte Esterase Cancelled Negative Urine HCG, Qual Negative 08/13/18 03:50 The Pt is unsafe for discharge at this time. They require further hospital observation, workup, and treatment. Microblog sent to [facility] for admission. Blank Decision to Admit order is placed per ED protocol. 08/13/18 04:03 Spoke with Sonny Andrew, in agreement Pt to be admitted. Decision to Admit order corrected with admitting team covering attendings name. Repeat EKG has been ordered already. Repeat vitals pending. Also ordered CXR. *DC/Admit/Observation/Transfer Diagnosis at time of Disposition: Unable to eat, Weight loss Abdominal pain Qualifiers: Abdominal location: unspecified location Qualified Code(s): R10.9 - Unspecified abdominal pain Vomiting Qualifiers: Vomiting type: unspecified Vomiting Intractability: non-intractable Nausea presence: with nausea Qualified Code(s): R11.2 - Nausea with vomiting, unspecified Pancreatitis Qualifiers: Chronicity: acute Pancreatitis type: unspecified pancreatitis type Acute pancreatitis complication: unspecified Qualified Code(s): K85.90 - Acute pancreatitis without necrosis or infection, unspecified - Discharge Dispostion Condition at time of disposition: Guarded Decision to Admit order: Yes - Referrals Referrals: Jose Martin Johnson FNP [Primary Care Provider] - - Patient Instructions - Post Discharge Activity
--- NOTE | 2018-08-13 01:28 | PDOC ---
Attending Attestation - Resident Resident Name: Nano Son - ED Attending Attestation I have performed the following: I have examined & evaluated the patient, The case was reviewed & discussed with the resident, I agree w/resident's findings & plan, Exceptions are as noted - HPI HPI: 08/13/18 01:20 47-year-old female no known past medical history here today complaining of epigastric pain nausea vomiting and diarrhea. Patient states she was seen in the ED recently for the same at that time had an ultrasound of the right upper quadrant which was unremarkable. She was found to have a mild UTI so therefore started on Keflex patient states after taking the antibiotics keflex , her symptoms became worse. Today she is here with worsening intermittent epigastric pain nausea vomiting and diarrhea. States she's had several loose watery nonbloody stools emesis is nonbloody and nonbilious patient denies any known sick contacts no recent travel no fevers no chills she does have a primary doctor who she saw wearing additional outpatient ultrasound which was normal. She denies any urinary symptoms stitches a history of alopecia for she has never been worked up - Physicial Exam PE: 08/13/18 01:28 awake alert ndistress patient has significpecia noted. Dry mucous membranes lungs are clear bilaterally heart is regularr tachycardic no murmurs rubs or gallops abdomen is soft and nontender skin warm and dry no rash extremities are warm and well-perfused - Medical Decision Making 08/13/18 01:28 Patient was noted to be hypotensive and tachycardic on arrival differential diagnosis includes dehydration renal failure anemia severe colitis pancreatitis gastritis EKG was obtained showed sinus tachycardia plan CBC electrolytes IV hydration will obtain CT abdomen and pelvis to evaluate for any intra-abdominal cause of the patient's symptoms we'll let for admission due to severe dehydration due to history of alopecia which has not been worked up previously will add a TSH
[2018-08-13 02:45] LABS: URINE APPEARANCE CLEAR; URINE BILIRUBIN NEGATIVE (<2.0 mg/dL); URINE COLOR COLORLESS; URINE GLUCOSE (UA) NEGATIVE (NEGATIVE); URINE KETONE NEGATIVE (NEGATIVE); URINE LEUK ESTERASE NEGATIVE (NEGATIVE); URINE NITRITE NEGATIVE (NEGATIVE); URINE PROTEIN NEGATIVE (NEGATIVE); URINE UROBILINOGEN NEGATIVE mg/dL (0.2-1.0)
--- NOTE | 2018-08-13 02:49 | PDOC ---
*Physical Exam - Vital Signs Last Vital Signs Temp Pulse Resp BP Pulse Ox 98.2 F 89 17 106/53 L 98 08/13/18 00:14 08/13/18 00:14 08/13/18 00:14 08/13/18 00:14 08/13/18 00:14 ED Treatment Course - LABORATORY CBC & Chemistry Diagram: 08/12/18 22:44 08/12/18 22:44 - ADDITIONAL ORDERS Additional order review: Laboratory Results 08/12/18 08/12/18 08/12/18 23:12 23:12 22:44 Sodium Potassium Chloride Carbon Dioxide Anion Gap BUN Creatinine Creat Clearance w eGFR Random Glucose Calcium Total Bilirubin AST ALT Alkaline Phosphatase Total Protein Albumin Lipase TSH 0.98 Urine Color Cancelled Urine Appearance Cancelled Urine pH Cancelled Ur Specific [place] Cancelled Urine Protein Cancelled Urine Glucose (UA) Cancelled Urine Ketones Cancelled Urine Blood Cancelled Urine Nitrite Cancelled Urine Bilirubin Cancelled Urine Urobilinogen Cancelled Ur Leukocyte Esterase Cancelled Urine HCG, Qual Negative 08/12/18 22:44 Sodium 136 Potassium 4.3 Chloride 100 Carbon Dioxide 29 Anion Gap 6 L BUN 10 Creatinine 0.7 Creat Clearance w eGFR > 60 Random Glucose 125 H Calcium 8.9 Total Bilirubin 0.7 AST 25 ALT 29 Alkaline Phosphatase 84 Total Protein 8.4 H Albumin 4.0 Lipase 398 H TSH Urine Color Urine Appearance Urine pH Ur Specific [place] Urine Protein Urine Glucose (UA) Urine Ketones Urine Blood Urine Nitrite Urine Bilirubin Urine Urobilinogen Ur Leukocyte Esterase Urine HCG, Qual 08/12/18 22:44 RBC 5.16 MCV 86.6 MCHC 33.9 RDW 13.5 MPV 8.3 Neutrophils % 90.5 H Lymphocytes % 5.5 L D Monocytes % 3.7 L Eosinophils % 0.1 D Basophils % 0.2 - Medications Given in the ED: ED Medications Discontinued Medications Generic Name Dose Route Start Last Admin Trade Name Freq PRN Reason Stop Dose Admin Acetaminophen 1,000 mg 08/12/18 22:45 08/12/18 23:00 Ofirmev Injection - IVPB 08/12/18 22:46 1,000 mg ONCE ONE Administration Sodium Chloride 1,000 mls @ 1,000 mls/hr 08/12/18 22:45 08/12/18 23:00 Normal Saline - IV 08/12/18 23:44 1,000 mls/hr ASDIR STA Administration Sodium Chloride 1,000 mls @ 1,000 mls/hr 08/13/18 00:20 08/13/18 00:35 Normal Saline - IV 08/13/18 01:19 1,000 mls/hr ASDIR STA Administration Ondansetron HCl 4 mg 08/12/18 22:45 08/12/18 23:00 Zofran Injection IVPUSH 08/12/18 22:46 4 mg ONCE ONE Administration Medical Decision Making - Medical Decision Making 08/13/18 03:38 Patient Name: AMANDA RICHARDSON THIS IS A PRELIMINARY REPORT FROM [facility] DATE OF SERVICE: 2018-08-13 02:37:41 IMAGES: [id number] EXAM: ABDOMEN \T\ PELVIS CT W/O CONTR HISTORY: Abdominal pain COMPARISON: None. FINDINGS: Small right lower lobe consolidation may represent pneumonia.. The visualized cardiac chambers are normal size and configuration. Normal unenhanced liver, gallbladder , pancreas, spleen, adrenal glands and kidneys. The stomach and abdominal small and large bowel are normal. There is no aortic aneurysm. There is no significant retroperitoneal lymphadenopathy. The pelvic small and large bowel are normal. There is no evidence of appendicitis below the appendix is not clearly identified. The uterus and adnexal structures are normal. Urinary bladder is unremarkable. There is a small amount of pelvic free fluid. No discrete pelvic lymphadenopathy is identified. IMPRESSION: Questionable small focus of right lower lobe pneumonia. Small amount of pelvic fluid is nonspecific, possibly physiologic. Individualized dose optimization techniques were used for this CT. THIS DOCUMENT HAS BEEN ELECTRONICALLY SIGNED *DC/Admit/Observation/Transfer Diagnosis at time of Disposition: Unable to eat, Weight loss Abdominal pain Qualifiers: Abdominal location: unspecified location Qualified Code(s): R10.9 - Unspecified abdominal pain Vomiting Qualifiers: Vomiting type: unspecified Vomiting Intractability: non-intractable Nausea presence: with nausea Qualified Code(s): R11.2 - Nausea with vomiting, unspecified Pancreatitis Qualifiers: Chronicity: acute Pancreatitis type: unspecified pancreatitis type Acute pancreatitis complication: unspecified Qualified Code(s): K85.90 - Acute pancreatitis without necrosis or infection, unspecified - Discharge Dispostion Condition at time of disposition: Guarded Decision to Admit order: Yes - Referrals Referrals: Jose Martin Johnson FNP [Primary Care Provider] - - Patient Instructions - Post Discharge Activity
[2018-08-13] MEDS ORDERED: PIPERACILLIN/TAZOB 3.375 GM 3.375 GM in DEXTROSE 5%-WATER - 50 ML IVPB ONE (03:33)
[2018-08-13] MEDS ORDERED: VANCOMYCIN 1 GRAM (PRE-DOCKED) 1,000 MG/250 ML BAG IVPB ONE ×2 (03:33→04:16)
--- NOTE | 2018-08-13 04:00 | PN ---
Teaching Attending Note Name of Resident: Sonny Andrew ATTENDING PHYSICIAN STATEMENT I saw and evaluated the patient. I reviewed the resident's note and discussed the case with the resident. I agree with the resident's findings and plan as documented. SUBJECTIVE: Patient is a 47 year old woman with no known PMH here today complaining of epigastric pain nausea vomiting and diarrhea. Patient was seen in the ER on 07/31 and 08/04/18 for the same and at that time ultrasound of the right upper quadrant was unremarkable. She was found to have a mild UTI (Strept Viridans) and got Keflex. Says her symptoms became worse after Keflex. Today she is here with worsening intermittent epigastric pain nausea vomiting and diarrhea. States she's had several loose watery nonbloody stools. Emesis is nonbloody and nonbilious patient denies any known sick contacts no recent travel no fevers or chills. She is afraid to eat - eating brings on the pain. 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 OBJECTIVE: Alert Vital Signs Period Temp Pulse Resp BP Sys/[place] Pulse Ox Last 24 Hr 97.9 F-98.2 F 89-122 17-18 85-106/53-53 97-98 HEENT: No Jaundice, eye redness or discharge, PERRLA, EOMI. Normocephalic, atraumatic. External ears are normal and hearing is grossly intact. No nasal discharge. Neck: Supple, nontender. No palpable adenopathy or thyromegaly. No JVD Chest: Good effort. Clear to auscultation and percussion. Heart: Regular. No S3, rub or murmur Abdomen: Not distended, soft, nontender and no HSM. No rebound or guarding. Normoactive bowel sounds. Ext: Peripheral pulses intact. No leg edema. Skin: Warm and dry. No petechiae, rash or ecchymosis. Neuro: Alert. Oriented x3. CN 2-12 grossly intact. Sensation grossly intact in all four extremities and DTR are symmetric. Current Medications Generic Name Dose Route Start Last Admin Trade Name Freq PRN Reason Stop Dose Admin Piperacillin Sod/Tazobactam 50 mls @ 100 mls/hr 08/13/18 03:33 Sod 3.375 gm/ Dextrose IVPB 08/13/18 04:02 ONCE ONE Protocol Home Medications Medication Instructions Recorded Acetaminophen [Tylenol] 650 mg PO Q4H PRN #20 tablet 07/31/18 Famotidine [Pepcid] 20 mg PO BID PRN #20 tablet 07/31/18 Ondansetron HCl [Zofran] 4 mg PO Q8H PRN #15 tablet 07/31/18 Cephalexin [Keflex] 500 mg PO BID #10 capsule 08/04/18 Ondansetron [Zofran Odt -] 4 mg SL BID PRN #10 od.tablet 08/04/18 Pantoprazole Sodium [Protonix -] 20 mg PO DAILY #14 tablet.ec 08/04/18 Abnormal Lab Results 08/12/18 08/12/18 08/13/18 22:44 22:44 02:20 WBC 13.9 H Absolute Neuts (auto) 12.6 H Neutrophils % 90.5 H Lymphocytes % 5.5 L D Monocytes % 3.7 L Anion Gap 6 L Random Glucose 125 H Total Protein 8.4 H Lipase 398 H Ur Specific [place] 1.001 L ASSESSMENT AND PLAN: 1. Abdominal pain - Etiology is unclear but highly suggestive of pancreatitis. CT scan showed only RLL pneumonia. Also sonogram did not show any hepatobiliary pathology. Will send any loose stool for C.Diff analysis since she has been on antibiotics. Will treat healthcare-associated pneumonia with vancomycin and zosyn and consult ID. Give IV NS, IV protonix and Consult GI. 2. DVT prophylaxis - Lovenox 40 mg SQ q 24 hours. 3. Advance directives - Full code
[2018-08-13] MEDS ORDERED: PIPERACILLIN/TAZOB 3.375 GM 3.375 GM/50 ML BAG IVPB ONE (04:16)
[2018-08-13] MEDS ORDERED: ACETAMINOPHEN 500 MG TABLET (FP) PO PRN (04:21)
--- NOTE | 2018-08-13 04:43 | HP ---
CHIEF COMPLAINT:Abdominal pain PCP: HISTORY OF PRESENT ILLNESS: 47F with no PMH presents to the ER for the third time in the past 3 weeks. She was seen twice prior for abdominal pain and given keflex for UTI. She initially had some relief with treatment of keflex, PPI, and zofran. But now she is having worsening abdominal pain nausea vomiting and diarrhea. Patient also noted to have elevated WBC count today. She currently is asymptomatic but she states she is afraid to eat because she does ot want to get the pain again. She states she gets relief of her symptoms when she vomits. She denies fever chills chest pain or SOB. She denies symptoms. Had CTAp and US ABD which did not have any acute findings. CTAP suspicious for RLL PNA, but, patient denies all symptoms of a pneumonia. 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 Recent Travel:denies PAST MEDICAL HISTORY:None PAST SURGICAL HISTORY:None Social History: Smoking:Denies Alcohol:Denies Drugs: Denies Family History: Allergies No Known Allergies Allergy (Verified 08/12/18 22:28) HOME MEDICATIONS: Home Medications Medication Instructions Recorded Acetaminophen [Tylenol] 650 mg PO Q4H PRN #20 tablet 07/31/18 Famotidine [Pepcid] 20 mg PO BID PRN #20 tablet 07/31/18 Ondansetron HCl [Zofran] 4 mg PO Q8H PRN #15 tablet 07/31/18 Cephalexin [Keflex] 500 mg PO BID #10 capsule 08/04/18 Ondansetron [Zofran Odt -] 4 mg SL BID PRN #10 od.tablet 08/04/18 Pantoprazole Sodium [Protonix -] 20 mg PO DAILY #14 tablet.ec 08/04/18 REVIEW OF SYSTEMS CONSTITUTIONAL: Absent: fever, chills, diaphoresis, generalized weakness, malaise, weight change Present:loss of appetite HEENT: Absent: rhinorrhea, nasal congestion, throat pain, throat swelling, difficulty swallowing, mouth swelling, ear pain, eye pain, visual changes CARDIOVASCULAR: Absent: chest pain, syncope, palpitations, irregular heart rate, lightheadedness , peripheral edema RESPIRATORY: Absent: cough, shortness of breath, dyspnea with exertion, orthopnea, wheezing, stridor, hemoptysis GASTROINTESTINAL: Absent: abdominal distension, constipation, melena, hematochezia Present: abdominal pain, nausea, vomiting, diarrhea GENITOURINARY: Absent: dysuria, frequency, urgency, hesitancy, hematuria, flank pain, genital pain MUSCULOSKELETAL: Absent: myalgia, arthralgia, joint swelling, back pain, neck pain SKIN: Absent: rash, itching, pallor HEMATOLOGIC/IMMUNOLOGIC: Absent: easy bleeding, easy bruising, lymphadenopathy, frequent infections ENDOCRINE: Absent: unexplained weight gain, unexplained weight loss, heat intolerance, cold intolerance NEUROLOGIC: Absent: headache, focal weakness or paresthesias, dizziness, unsteady gait, seizure, mental status changes, bladder or bowel incontinence PSYCHIATRIC: Absent: anxiety, depression, suicidal or homicidal ideation, hallucinations. PHYSICAL EXAMINATION Vital Signs - 24 hr 08/12/18 08/13/18 22:25 00:14 Temperature 97.9 F 98.2 F Pulse Rate 122 H Pulse Rate [ 89 Right Apical] Respiratory 18 17 Rate Blood Pressure 85/53 L Blood Pressure 106/53 L [Right Arm] O2 Sat by Pulse 97 98 Oximetry (%) GENERAL: Awake, alert, and fully oriented, in no acute distress. HEAD: Normal with no signs of trauma. EYES: Pupils equal, round and reactive to light, extraocular movements intact, sclera anicteric, conjunctiva clear. No lid lag. EARS, NOSE, THROAT: Dry mucous membranes. NECK: Normal range of motion, supple without lymphadenopathy, JVD, or masses. LUNGS: Breath sounds equal, clear to auscultation bilaterally. No wheezes, and no crackles. No accessory muscle use. HEART: Regular rate and rhythm, normal S1 and S2 without murmur, rub or gallop. ABDOMEN: Soft, nontender, not distended, normoactive bowel sounds, no guarding, no rebound, no masses. No hepatomegaly or splenomegaly. MUSCULOSKELETAL: Normal range of motion at all joints. No bony deformities or tenderness. No CVA tenderness. UPPER EXTREMITIES: warm, well-perfused. LOWER EXTREMITIES: warm, well-perfused. No calf tenderness. No peripheral edema. Laboratory Results - last 24 hr 08/12/18 08/12/18 08/12/18 22:44 22:44 22:44 WBC 13.9 H RBC 5.16 Hgb 15.1 Hct 44.6 MCV 86.6 MCH 29.4 MCHC 33.9 RDW 13.5 Plt Count 327 MPV 8.3 Absolute Neuts (auto) 12.6 H Neutrophils % 90.5 H Lymphocytes % 5.5 L D Monocytes % 3.7 L Eosinophils % 0.1 D Basophils % 0.2 Nucleated RBC % 0 Sodium 136 Potassium 4.3 Chloride 100 Carbon Dioxide 29 Anion Gap 6 L BUN 10 Creatinine 0.7 Creat Clearance w eGFR > 60 Random Glucose 125 H Calcium 8.9 Total Bilirubin 0.7 AST 25 ALT 29 Alkaline Phosphatase 84 Total Protein 8.4 H Albumin 4.0 Lipase 398 H TSH 0.98 Urine Color Urine Appearance Urine pH Ur Specific [place] Urine Protein Urine Glucose (UA) Urine Ketones Urine Blood Urine Nitrite Urine Bilirubin Urine Urobilinogen Ur Leukocyte Esterase Urine HCG, Qual 08/12/18 08/12/18 08/13/18 23:12 23:12 02:20 WBC RBC Hgb Hct MCV MCH MCHC RDW Plt Count MPV Absolute Neuts (auto) Neutrophils % Lymphocytes % Monocytes % Eosinophils % Basophils % Nucleated RBC % Sodium Potassium Chloride Carbon Dioxide Anion Gap BUN Creatinine Creat Clearance w eGFR Random Glucose Calcium Total Bilirubin AST ALT Alkaline Phosphatase Total Protein Albumin Lipase TSH Urine Color Cancelled Colorless Urine Appearance Cancelled Clear Urine pH Cancelled 7.0 Ur Specific [place] Cancelled 1.001 L Urine Protein Cancelled Negative Urine Glucose (UA) Cancelled Negative Urine Ketones Cancelled Negative Urine Blood Cancelled Negative Urine Nitrite Cancelled Negative Urine Bilirubin Cancelled Negative Urine Urobilinogen Cancelled Negative Ur Leukocyte Esterase Cancelled Negative Urine HCG, Qual Negative ASSESSMENT/PLAN: 47F with no PMH presents with 2 week history of abdominal pain. Problem list: Abdominal pain nausea vomiting diarrhea leukocytosis Plan: Admit to inpatient services GI consult Dr. Cornelio HUGHES and US negative for acute pathology NPO IVF antiemetics pain control would hold off on antibiotics at this time as suspicion for pneumonia low. repeat EKG get CXR PPI DVT PPx Send stool cultures send C diff given recent ABx Visit type - Emergency Visit Emergency Visit: Yes Care time: The patient presented to the Emergency Department on the above date and was hospitalized for further evaluation of their emergent condition. - New Patient This patient is new to me today: Yes Date on this admission: 08/13/18 - Critical Care Critical Care patient: No
[2018-08-13] MEDS: SODIUM CHLORIDE 1,000 ML IV SCH ×2 (04:47→22:28)
[2018-08-13] MEDS ORDERED: HEPARIN NA (PORCINE) 5,000 UNITS/ML 1ML VIAL ONE (08:43)
[2018-08-13] MEDS ORDERED: PANTOPRAZOLE SODIUM 40 MG VIAL ONE (08:43)
[2018-08-13] MEDS: HEPARIN NA (PORCINE) 5,000 UNITS/ML 1ML VIAL SQ SCH ×3 (09:12→22:32)
[2018-08-13] MEDS: PANTOPRAZOLE 40 MG TABLET (FP) PO SCH ×2 (09:12→10:00)
[2018-08-13 09:35] LABS: HEMATOCRIT 36.3 % (32.4-45.2); HEMOGLOBIN 12.1 GM/dL (10.7-15.3); MCH 28.9 pg (25.7-33.7); MCHC 33.3 g/dl (32.0-36.0); MEAN CELL VOLUME 86.9 fl (80-96); MEAN PLT VOLUME 7.6 fl (7.5-11.1); PLATELET COUNT 210 K/MM3 (134-434); RBC 4.18 M/mm3 (3.60-5.2); RDW 13.6 % (11.6-15.6); WHITE BLOOD COUNT 5.8 K/mm3 (4.0-10.0)
[2018-08-13 10:34] LABS: ALK PHOS 65 U/L (45-117); ANION GAP 7 MMOL/L (8-16); BILIRUBIN,TOTAL 0.7 mg/dL (0.2-1); BLOOD UREA NITROGEN 6 mg/dL (7-18); CALCIUM 7.9 mg/dL (8.5-10.1); CHLORIDE 110 mmol/L (98-107); CO2 25 mmol/L (21-32); CREATININE 0.6 mg/dL (0.55-1.3); GLUCOSE,RANDOM 81 mg/dL (74-106); MAGNESIUM 2.1 mg/dL (1.8-2.4); PHOSPHOROUS 2.6 mg/dL (2.5-4.9); POTASSIUM 3.6 mmol/L (3.5-5.1); SGOT/AST 14 U/L (15-37); SGPT/ALT 22 U/L (13-61); SODIUM 141 mmol/L (136-145); TOT PROT 6.2 g/dl (6.4-8.2)
--- NOTE | 2018-08-13 10:45 | PN ---
Progress Note (short form) - Note Progress Note: Subjective: feels better today. reports N/V until 9 pm last night. reports watery, non bloody diarrhea until 5 pm yesterday. abd painis better. reprots 2 episodes of similar pain adn N/V for which ravin presented to ER on 07/31, adn 08/05. she was given keflex on 07/31 for possible UTI. She was prescribed antiacid on 08/05 visit. on 08/10 she had US which showed no abd pathology. Her LFTs were nL during those visits . she denies NSAIds, or alcohol use. denies urinary sx, hasno back pain, no cp . has minimal cough with yellow sputum production . no fever or chills, No CP .has SOB when she vomits Objective: Vital Signs: Last Vital Signs Temp Pulse Resp BP Pulse Ox 97.9 F 83 18 112/60 100 08/13/18 08:55 08/13/18 08:55 08/13/18 08:55 08/13/18 08:55 08/13/18 08:55 Laboratory Results - last 24 hr 08/12/18 08/12/18 08/12/18 22:44 22:44 22:44 WBC 13.9 H RBC 5.16 Hgb 15.1 Hct 44.6 MCV 86.6 MCH 29.4 MCHC 33.9 RDW 13.5 Plt Count 327 MPV 8.3 Absolute Neuts (auto) 12.6 H Neutrophils % 90.5 H Lymphocytes % 5.5 L D Monocytes % 3.7 L Eosinophils % 0.1 D Basophils % 0.2 Nucleated RBC % 0 Sodium 136 Potassium 4.3 Chloride 100 Carbon Dioxide 29 Anion Gap 6 L BUN 10 Creatinine 0.7 Creat Clearance w eGFR > 60 Random Glucose 125 H Calcium 8.9 Phosphorus Magnesium Total Bilirubin 0.7 AST 25 ALT 29 Alkaline Phosphatase 84 Total Protein 8.4 H Albumin 4.0 Lipase 398 H TSH 0.98 Urine Color Urine Appearance Urine pH Ur Specific [place] Urine Protein Urine Glucose (UA) Urine Ketones Urine Blood Urine Nitrite Urine Bilirubin Urine Urobilinogen Ur Leukocyte Esterase Urine HCG, Qual 08/12/18 08/12/18 08/13/18 23:12 23:12 02:20 WBC RBC Hgb Hct MCV MCH MCHC RDW Plt Count MPV Absolute Neuts (auto) Neutrophils % Lymphocytes % Monocytes % Eosinophils % Basophils % Nucleated RBC % Sodium Potassium Chloride Carbon Dioxide Anion Gap BUN Creatinine Creat Clearance w eGFR Random Glucose Calcium Phosphorus Magnesium Total Bilirubin AST ALT Alkaline Phosphatase Total Protein Albumin Lipase TSH Urine Color Cancelled Colorless Urine Appearance Cancelled Clear Urine pH Cancelled 7.0 Ur Specific [place] Cancelled 1.001 L Urine Protein Cancelled Negative Urine Glucose (UA) Cancelled Negative Urine Ketones Cancelled Negative Urine Blood Cancelled Negative Urine Nitrite Cancelled Negative Urine Bilirubin Cancelled Negative Urine Urobilinogen Cancelled Negative Ur Leukocyte Esterase Cancelled Negative Urine HCG, Qual Negative 08/13/18 08/13/18 09:18 09:18 WBC 5.8 RBC 4.18 Hgb 12.1 Hct 36.3 D MCV 86.9 MCH 28.9 MCHC 33.3 RDW 13.6 Plt Count 210 D MPV 7.6 Absolute Neuts (auto) Neutrophils % Lymphocytes % Monocytes % Eosinophils % Basophils % Nucleated RBC % Sodium 141 Potassium 3.6 Chloride 110 H Carbon Dioxide 25 Anion Gap 7 L BUN 6 L Creatinine 0.6 Creat Clearance w eGFR > 60 Random Glucose 81 Calcium 7.9 L Phosphorus 2.6 Magnesium 2.1 Total Bilirubin 0.7 AST 14 L ALT 22 Alkaline Phosphatase 65 Total Protein 6.2 L Albumin 3.0 L Lipase TSH Urine Color Urine Appearance Urine pH Ur Specific [place] Urine Protein Urine Glucose (UA) Urine Ketones Urine Blood Urine Nitrite Urine Bilirubin Urine Urobilinogen Ur Leukocyte Esterase Urine HCG, Qual Physical Exam: NAD , comfortable , cooperative , EOMI, unicteric sclera. MMM CV: RRR, no MRG Lungs: CTAB ext : no donnie or erythema Abd: soft, NT, ND , NL BS , no hepatosplenomegaly. NL BS . no CVA tenderness.neg [facility] Imaging: Cxray : clear CT image reviewed. no report yet. distended urinary bladder, thick wall , no signs of bowel obstruction , no wall thickening of gall bladder. ? minimal consolidation in RLL . report pending. EKG : sinus tachy with TWI inlateral and inferior leads. not present on previous EKG 07/31. qtc 448 Assessment/Plan: pleasant 47 y/o lady with h/o significant for recent ER visits for abd pain N/V , who presented with same sx in addition to diarrhea . 1- Abd pain, N/V, and diarrhea: unclear of etiology. possible viral gastroenteritis . ? PUD. recent Abx use---> c diff needs to be r/o. No evidence of pancreatitis on exam or review of CT scan. She has new EKG changes , but doubt ACS as a primary etiology ( just due to tachycardia ). No evidenc eof UTI - symptomatic management of GI sx . - PPI , IVF, clears - might need EGD at some point if sx don't improve. - C diff pending - check Legionella urine Ag. - Start azithro with close monitoring of her QTC. - repeat EKG, check trop . - GI consult pending. dr. Collins notified. - follow final CT report 2- DVT PX Visit type - Emergency Visit Emergency Visit: Yes ED Registration Date: 08/13/18 Care time: The patient presented to the Emergency Department on the above date and was hospitalized for further evaluation of their emergent condition. - New Patient This patient is new to me today: Yes Date on this admission: 08/13/18 - Critical Care Critical Care patient: No
[2018-08-13] MEDS: AZITHROMYCIN IVPB 500 MG in DEXTROSE 5%-WATER - 250 ML IVPB SCH (12:23)
[2018-08-13] MEDS ORDERED: AZITHROMYCIN IVPB 500 MG/250 ML BAG IVPB ONE (12:26)
--- NOTE | 2018-08-13 12:30 | CON.GI ---
Consult Consult Specialty:: Gastroenterology ( for Dr Pope) Referred by:: Dr. Sonny Andrew Reason for Consultation:: Epigastric pain and diarrhea - History of Present Illness Chief Complaint: Epigastric pain x 3 weeks with diarrhea yesterday History of Present Illness: 47F developed epigastric pain 2 weeks ago. This followed an episode of having eaten an undercooked egg which she immediately regurgitated. She was seen in the ER and started on an antibiotic for a UTI. Yesterday she regurgitated anything that she tried to eat. Dr. Andrew alludes to a CTA being nondiagnostic. Her sonogram fails to reveal gallstones. She denies any h/o GI problems other than having been treated for parasites while still in the [facility]. She had had an appendectomy and 3 C-sections. She works in the kitchen at [employer] . She denies antibiotic exposure prior two weeks ago. No NSAID usage. - History Source History Provided By: Patient Limitations to Obtaining History: No Limitations - Past Medical History Gastrointestinal: Yes: Other (treated for GI parasites 13 years ago in ) Infectious Disease: Yes: Other (GI parasite in ) - Past Surgical History Past Surgical History: Yes: Appendectomy, Breast Biopsy (left benign ), C- Section (x 3) - Alcohol/Substance Use Hx Alcohol Use: Yes (rare) History of Substance Use: reports: None - Smoking History Smoking history: Never smoked Have you smoked in the past 12 months: No - Social History Usual Living Arrangement: With Spouse ADL: Independent 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year[place] 13 years ago History of Recent Travel: No Home Medications - Allergies Allergies/Adverse Reactions: Allergies Allergy/AdvReac Type Severity Reaction Status Date / Time No Known Allergies Allergy Verified 08/12/18 22:28 - Home Medications Home Medications: Ambulatory Orders NK [No Known Home Medication] 08/13/18 Family Disease History - Family Disease History Family Disease History: CA: Mother ( 66 of leukemia) Review of Systems - Review of Systems Constitutional: reports: Chills, Loss of Appetite, Malaise, Unintentional Wgt. Loss Eyes: reports: No Symptoms HENT: reports: No Symptoms Neck: reports: No Symptoms Cardiovascular: reports: Palpitations Respiratory: reports: No Symptoms Gastrointestinal: reports: Abdominal Pain, Diarrhea, Nausea, Vomiting Genitourinary: reports: Frequency Endocrine: reports: [place] Physical Exam-GI Vital Signs: Vital Signs Temperature 97.9 F 08/13/18 08:55 Pulse Rate 83 08/13/18 08:55 Respiratory Rate 18 08/13/18 08:55 Blood Pressure 112/60 08/13/18 08:55 O2 Sat by Pulse Oximetry (%) 100 08/13/18 08:55 CBC,CMP WBC 5.8 K/mm3 (4.0-10.0) 08/13/18 09:18 RBC 4.18 M/mm3 (3.60-5.2) 08/13/18 09:18 Hgb 12.1 GM/dL (10.7-15.3) 08/13/18 09:18 Hct 36.3 % (32.4-45.2) D 08/13/18 09:18 MCV 86.9 fl (80-96) 08/13/18 09:18 MCH 28.9 pg (25.7-33.7) 08/13/18 09:18 MCHC 33.3 g/dl (32.0-36.0) 08/13/18 09:18 RDW 13.6 % (11.6-15.6) 08/13/18 09:18 Plt Count 210 K/MM3 (134-434) D 08/13/18 09:18 MPV 7.6 fl (7.5-11.1) 08/13/18 09:18 Absolute Neuts (auto) 12.6 K/mm3 (1.5-8.0) H 08/12/18 22:44 Neutrophils % 90.5 % (42.8-82.8) H 08/12/18 22:44 Lymphocytes % 5.5 % (8-40) L D 08/12/18 22:44 Monocytes % 3.7 % (3.8-10.2) L 08/12/18 22:44 Eosinophils % 0.1 % (0-4.5) D 08/12/18 22:44 Basophils % 0.2 % (0-2.0) 08/12/18 22:44 Nucleated RBC % 0 % (0-0) 08/12/18 22:44 Sodium 141 mmol/L (136-145) 08/13/18 09:18 Potassium 3.6 mmol/L (3.5-5.1) 08/13/18 09:18 Chloride 110 mmol/L (98-107) H 08/13/18 09:18 Carbon Dioxide 25 mmol/L (21-32) 08/13/18 09:18 Anion Gap 7 MMOL/L (8-16) L 08/13/18 09:18 BUN 6 mg/dL (7-18) L 08/13/18 09:18 Creatinine 0.6 mg/dL (0.55-1.3) 08/13/18 09:18 Creat Clearance w eGFR > 60 (>60) 08/13/18 09:18 Random Glucose 81 mg/dL (74-106) 08/13/18 09:18 Calcium 7.9 mg/dL (8.5-10.1) L 08/13/18 09:18 Phosphorus 2.6 mg/dL (2.5-4.9) 08/13/18 09:18 Magnesium 2.1 mg/dL (1.8-2.4) 08/13/18 09:18 Total Bilirubin 0.7 mg/dL (0.2-1) 08/13/18 09:18 AST 14 U/L (15-37) L 08/13/18 09:18 ALT 22 U/L (13-61) 08/13/18 09:18 Alkaline Phosphatase 65 U/L (45-117) 08/13/18 09:18 Total Protein 6.2 g/dl (6.4-8.2) L 08/13/18 09:18 Albumin 3.0 g/dl (3.4-5.0) L 08/13/18 09:18 Lipase 398 U/L (73-393) H 08/12/18 22:44 TSH 0.98 uIU/ml (0.358-3.74) 08/12/18 22:44 Current Medications Generic Name Dose Route Start Last Admin Trade Name Freq PRN Reason Stop Dose Admin Acetaminophen 1,000 mg 08/13/18 04:21 Tylenol - PO Q6H PRN PAIN OR FEVER Heparin Sodium (Porcine) 5,000 unit 08/13/18 06:00 08/13/18 09:12 Heparin - SQ 5,000 unit TID VALARIE Administration Sodium Chloride 1,000 mls @ 75 mls/hr 08/13/18 04:30 08/13/18 04:47 Normal Saline - IV 75 mls/hr ASDIR VALARIE Administration Azithromycin 500 mg/ Dextrose 250 mls @ 250 mls/hr 08/13/18 11:15 08/13/18 12 :23 IVPB 250 mls/hr DAILY VALARIE Administration Pantoprazole Sodium 40 mg 08/13/18 04:32 08/13/18 10:00 Protonix - PO 40 mg DAILY VALARIE Administration Constitutional: Yes: Anxious Eyes: Yes: Conjunctiva Clear HENT: Yes: Normocephalic Neck: Yes: Trachea Midline Cardiovascular: Yes: Regular Rate and Rhythm Respiratory: Yes: CTA Bilaterally Gastrointestinal Inspection: Yes: Scars (healed Pfannensteil incisions) ...Auscultate: Yes: Normoactive Bowel Sounds ...Palpate: Yes: Soft, Other (nontender) ...Rectal Exam: Yes: Guaiac Negative (no masses, smudgeof semisolid brown g neg stool) Edema: No Peripheral Pulses WNL: Yes Neurological: Yes: Alert, Oriented Labs: CBC, BMP 08/13/18 09:18 08/13/18 09:18 Problem List - Problems (1) Epigastric pain Assessment/Plan: Given the persistence of her epigastric pain leading to vomiting and inability to eat an ulcer and/or erosive gastritis needs to be considered. I have therefore offered an EGD and discussed the potential for such complications as perforation and hemorrhage. She has declined this but will allow an UGI series. Given her job in a [employer], her parasite and antibiotic history and diarrhea, her stool will be screened for C diff, GI pathogens and parasites. A PPI will be given in the interim. She could have a postviral ( gastroenteritis) gastroparesis. 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 Code(s): R19.7 - DIARRHEA, UNSPECIFIED (4) History of intestinal parasite Code(s): Z86.19 - PERSONAL HISTORY OF OTHER INFECTIOUS AND PARASITIC DISEASES (5) Unable to eat Code(s): F50.89 - OTHER SPECIFIED EATING DISORDER (6) Vomiting Code(s): R11.10 - VOMITING, UNSPECIFIED Qualifiers: Vomiting type: unspecified Vomiting Intractability: non-intractable Nausea presence: with nausea Qualified Code(s): R11.2 - Nausea with vomiting, unspecified (7) Gastroenteritis Code(s): K52.9 - NONINFECTIVE GASTROENTERITIS AND COLITIS, UNSPECIFIED (8) Gastroparesis Code(s): K31.84 - GASTROPARESIS
[2018-08-13] MEDS: METOCLOPRAMIDE HCL INJECTION 10 MG/2 ML VIAL IVPUSH SCH ×2 (15:13→22:29)
[2018-08-13] MEDS: PANTOPRAZOLE SODIUM 40 MG VIAL IVPUSH SCH (22:32)
[2018-08-14 00:43] VITALS: BMI 20.5
[2018-08-14] MEDS: METOCLOPRAMIDE HCL INJECTION 10 MG/2 ML VIAL IVPUSH SCH ×4 (02:20→21:36)
[2018-08-14] MEDS: SODIUM CHLORIDE 1,000 ML IV SCH ×2 (04:30→11:24)
[2018-08-14] MEDS: HEPARIN NA (PORCINE) 5,000 UNITS/ML 1ML VIAL SQ SCH ×3 (06:15→21:36)
[2018-08-14 07:23] LABS: BASO % 0.5 % (0-2.0); EOS % 0.9 % (0-4.5); HEMATOCRIT 36.2 % (32.4-45.2); HEMOGLOBIN 12.1 GM/dL (10.7-15.3); LYMPH % 37.8 % (8-40); MCHC 33.5 g/dl (32.0-36.0); MEAN CELL VOLUME 86.5 fl (80-96); MEAN PLT VOLUME 8.2 fl (7.5-11.1); MONO % 14.3 % (3.8-10.2); NEUT % 46.5 % (42.8-82.8); PLATELET COUNT 203 K/MM3 (134-434); RBC 4.19 M/mm3 (3.60-5.2); RDW 13.2 % (11.6-15.6)
[2018-08-14 08:03] LABS: ALK PHOS 65 U/L (45-117); ANION GAP 5 MMOL/L (8-16); BILIRUBIN,TOTAL 0.5 mg/dL (0.2-1); BLOOD UREA NITROGEN 3 mg/dL (7-18); CALCIUM 7.9 mg/dL (8.5-10.1); CHLORIDE 110 mmol/L (98-107); CO2 28 mmol/L (21-32); CREATININE 0.6 mg/dL (0.55-1.3); GLUCOSE,RANDOM 79 mg/dL (74-106); MAGNESIUM 2.3 mg/dL (1.8-2.4); POTASSIUM 3.8 mmol/L (3.5-5.1); SGOT/AST 13 U/L (15-37); SGPT/ALT 20 U/L (13-61); SODIUM 143 mmol/L (136-145); TOT PROT 6.3 g/dl (6.4-8.2)
--- NOTE | 2018-08-14 10:45 | EKG ---
Test Reason : Blood Pressure : / mmHG Vent. Rate : 080 BPM Atrial Rate : 080 BPM P-R Int : 160 ms QRS Dur : 084 ms QT Int : 386 ms P-R-T Axes : 046 091 041 degrees QTc Int : 445 ms NORMAL SINUS RHYTHM BORDERLINE ECG WHEN COMPARED WITH ECG OF 12-AUG-2018 23:58, T WAVE VARIATION Confirmed by GRICEL MARTINEZ MD ([id number]) on 08/14/2018 10:45:00 AM Referred By: Confirmed By:GRICEL MARTINEZ MD
--- NOTE | 2018-08-14 11:04 | EKG ---
Test Reason : Blood Pressure : / mmHG Vent. Rate : 115 BPM Atrial Rate : 115 BPM P-R Int : 160 ms QRS Dur : 090 ms QT Int : 324 ms P-R-T Axes : 082 095 030 degrees QTc Int : 448 ms SINUS TACHYCARDIA RIGHT ATRIAL ENLARGEMENT NONSPECIFIC T WAVE ABNORMALITY ABNORMAL ECG WHEN COMPARED WITH ECG OF 31-JUL-2018 19:17, T WAVE VARIATION Confirmed by GRICEL MARTINEZ MD ([id number]) on 08/14/2018 11:03:59 AM Referred By: Confirmed By:GRICEL MARTINEZ MD
[2018-08-14] MEDS: PANTOPRAZOLE SODIUM 40 MG VIAL IVPUSH SCH ×2 (11:12→21:36)
--- NOTE | 2018-08-14 11:28 | PN ---
Physical Exam: SUBJECTIVE: Patient seen and examined at bedside this morning. Admits cough with yellow- white sputum. Endorses that her last bowel movement was yesterday, semi solid without melena or karthikeyan red blood. Urinating well without dysuria or hematuria. Denies fevers, chills, shortness of breath, chest pain, palpitations , abdominal pain, nausea, vomiting, diarrhea, constipation. OBJECTIVE: Vital Signs Period Temp Pulse Resp BP Sys/[place] Pulse Ox Last 24 Hr 97.7 F-98.9 F 69-94 6-20 109-148/57-95 97-100 GENERAL: The patient is awake, alert, and fully oriented, in no acute distress. Thin female, appear stated age. HEAD: Normocephlic, atraumatic. EYES: PERRLA, extraocular movements intact b/l. Sclera anicteric, conjunctiva clear without injection b/l. ENT: Oropharynx clear without exudates, moist mucous membranes. NECK: Supple without lymphadenoopathy. LUNGS: Good inspiratory effort and air entry b/l. Breath sounds equal, clear to auscultation bilaterally, no wheezes, no crackles, no accessory muscle use. HEART: Regular rate and rhythm, S1, S2 without murmur, rub or gallop. ABDOMEN: Soft, nontender to light and deep palpation X4 quadrants, nondistended. Normoactive bowel sounds. No guarding, no rebound tenderness. No hepatosplenomegaly. EXTREMITIES: 2+ radial and dorsalis pedis pulses b/l. Warm, well-perfused, no lower extremity edema b/l. NEUROLOGICAL: Cranial nerves II through XII grossly intact. Normal speech. Strength 5/5 b/l upper and lower extremities. PSYCH: Normal mood, normal affect upon my encounter today. SKIN: Warm, dry. Laboratory Results - last 24 hr 08/13/18 08/14/18 08/14/18 09:18 06:45 06:45 WBC 3.0 L RBC 4.19 Hgb 12.1 Hct 36.2 MCV 86.5 MCH 29.0 MCHC 33.5 RDW 13.2 Plt Count 203 MPV 8.2 Absolute Neuts (auto) 1.4 L Neutrophils % 46.5 D Lymphocytes % 37.8 D Monocytes % 14.3 H D Eosinophils % 0.9 D Basophils % 0.5 Nucleated RBC % 0 Sodium 141 143 Potassium 3.6 3.8 Chloride 110 H 110 H Carbon Dioxide 25 28 Anion Gap 7 L 5 L BUN 6 L 3 L Creatinine 0.6 0.6 Creat Clearance w eGFR > 60 > 60 Random Glucose 81 79 Calcium 7.9 L 7.9 L Phosphorus 2.6 3.0 Magnesium 2.1 2.3 Total Bilirubin 0.7 0.5 AST 14 L 13 L ALT 22 20 Alkaline Phosphatase 65 65 Troponin I < 0.02 C-Reactive Protein Total Protein 6.2 L 6.3 L Albumin 3.0 L 3.0 L Total Amylase Lipase 08/14/18 06:45 WBC RBC Hgb Hct MCV MCH MCHC RDW Plt Count MPV Absolute Neuts (auto) Neutrophils % Lymphocytes % Monocytes % Eosinophils % Basophils % Nucleated RBC % Sodium Potassium Chloride Carbon Dioxide Anion Gap BUN Creatinine Creat Clearance w eGFR Random Glucose Calcium Phosphorus Magnesium Total Bilirubin AST ALT Alkaline Phosphatase Troponin I C-Reactive Protein 0.9 H Total Protein Albumin Total Amylase 54 Lipase 150 Active Medications Generic Name Dose Route Start Last Admin Trade Name Freq PRN Reason Stop Dose Admin Acetaminophen 1,000 mg 08/13/18 04:21 Tylenol - PO Q6H PRN PAIN OR FEVER Heparin Sodium (Porcine) 5,000 unit 08/13/18 06:00 08/14/18 06:15 Heparin - SQ Not Given TID VALARIE Sodium Chloride 1,000 mls @ 75 mls/hr 08/13/18 04:30 08/14/18 04:30 Normal Saline - IV Not Given ASDIR VALARIE Azithromycin 500 mg/ Dextrose 250 mls @ 250 mls/hr 08/13/18 11:15 08/13/18 12 :23 IVPB 250 mls/hr DAILY VALARIE Administration Metoclopramide HCl 10 mg 08/13/18 15:00 08/14/18 11:12 Reglan Injection - IVPUSH Not Given Q6H-IV VALARIE Pantoprazole Sodium 40 mg 08/13/18 22:00 08/14/18 11:12 Protonix Iv IVPUSH 40 mg BID VALARIE Administration IMAGING CT abdomen pelvis: No acute abdominal pathology US gallbladder: ASSESSMENT/PLAN: Patient is a 58 year old female with no significant medical history presents with complaint of abdominal pain. Abdominal pain -Unclear etiology. Likely viral gastroenteritis. -GI consult (Dr. Collins) appreciated: Patient does not want EGD, however consents for upper GI series Upper GI series done today, however there was residual contrast, and will need to repeat study tomorrow. -Rule out C.diff -F/U C. diff toxin and antigen -F/U stool culture -Protonix 40mg IV BID -Reglan 10mg IV Q6H -Azithromycin 500mg daily -Pain control with Tylenol 1000mg PO Q6H Pneumonia -Patient continues to cough productive with yellow-white sputum. -Urine for pneumonia presumptive negative. -Patient received 2 days azithromycin. -Continue treatment with Keflex 500mg PO BID for next three days. FEN -IV normal saline at 75mL/ hour -Will follow CMP -Clear liquids today Prophylaxis -Heparin 5000u subq TID Disposition -Continue care in medical surgical floor. For possible discharge tomorrow pending result of upper GI series. Visit type - Emergency Visit Emergency Visit: Yes ED Registration Date: 08/13/18 Care time: The patient presented to the Emergency Department on the above date and was hospitalized for further evaluation of their emergent condition. - New Patient This patient is new to me today: Yes Date on this admission: 08/14/18 - Critical Care Critical Care patient: No - Discharge Referral Referred to [facility] Med P.C.: No
[2018-08-14] MEDS ORDERED: AZITHROMYCIN IVPB 500 MG/250 ML BAG IVPB SCH (12:58)
[2018-08-14] MEDS: AZITHROMYCIN IVPB 500 MG in DEXTROSE 5%-WATER - 250 ML IVPB SCH (13:11)
--- NOTE | 2018-08-14 15:35 | EKG ---
Test Reason : Blood Pressure : / mmHG Vent. Rate : 072 BPM Atrial Rate : 072 BPM P-R Int : 160 ms QRS Dur : 094 ms QT Int : 406 ms P-R-T Axes : 041 089 067 degrees QTc Int : 444 ms NORMAL SINUS RHYTHM NORMAL ECG WHEN COMPARED WITH ECG OF 13-AUG-2018 11:20, T WAVE VARIATION Confirmed by GRICEL MARTINEZ MD ([id number]) on 08/14/2018 3:35:00 PM Referred By: ANDRAE WOLFFER Confirmed By:GRICEL MARTINEZ MD
--- NOTE | 2018-08-14 18:40 | PN ---
Teaching Attending Note Name of Resident: Emmett Kim ATTENDING PHYSICIAN STATEMENT I saw and evaluated the patient. I reviewed the resident's note and discussed the case with the resident. I agree with the resident's findings and plan as documented. SUBJECTIVE: No fever or chills, no abd pain or N/V. cont to have cough and sputum production but improved OBJECTIVE: NAD, comfortable CV: RRR, no MRG Lungs: CTAB ext : no donnie or erythema Abd: soft, NT, ND , NL BS , no hepatosplenomegaly. NL BS . Assesment and plan : pleasant 47 y/o lady with h/o significant for recent ER visits for abd pain N/V , who presented with same sx in addition to diarrhea . 1- Abd pain, N/V, and diarrhea: unclear of etiology. gastroenteritis vs gastroparesis Vs secondary to PNA - sx completely resolved - cont pPI - abd seris to be completed tomorrow - declined EGD - legionella AG neg 2- Community acquired PNA: - dc azithro ( LEgionela Ag neg ) - cont keflex x 3 more days due to boardlerline QTC 3- dispo : possible dc home tomorrow
[2018-08-14] MEDS ORDERED: CEPHALEXIN MONOHYDRATE 500 MG CAPSULE (UD) PO SCH (22:00)
[2018-08-15] MEDS: METOCLOPRAMIDE HCL INJECTION 10 MG/2 ML VIAL IVPUSH SCH ×3 (03:09→15:08)
[2018-08-15] MEDS: SODIUM CHLORIDE 1,000 ML IV SCH (06:03)
[2018-08-15] MEDS: HEPARIN NA (PORCINE) 5,000 UNITS/ML 1ML VIAL SQ SCH ×2 (06:03→15:08)
[2018-08-15 07:16] LABS: HEMATOCRIT 38.5 % (32.4-45.2); HEMOGLOBIN 12.9 GM/dL (10.7-15.3); MCHC 33.4 g/dl (32.0-36.0); MEAN CELL VOLUME 86.8 fl (80-96); PLATELET COUNT 195 K/MM3 (134-434); RBC 4.44 M/mm3 (3.60-5.2); RDW 13.2 % (11.6-15.6); WHITE BLOOD COUNT 2.9 K/mm3 (4.0-10.0)
[2018-08-15 07:39] LABS: ALBUMIN 3.2 g/dl (3.4-5.0); ALK PHOS 70 U/L (45-117); ANION GAP 4 MMOL/L (8-16); BILIRUBIN,TOTAL 0.5 mg/dL (0.2-1); BLOOD UREA NITROGEN 3 mg/dL (7-18); CALCIUM 8.3 mg/dL (8.5-10.1); CHLORIDE 109 mmol/L (98-107); CO2 29 mmol/L (21-32); CREATININE 0.6 mg/dL (0.55-1.3); GLUCOSE,RANDOM 86 mg/dL (74-106); SGOT/AST 16 U/L (15-37); SGPT/ALT 20 U/L (13-61); SODIUM 142 mmol/L (136-145); TOT PROT 6.8 g/dl (6.4-8.2)
[2018-08-15] MEDS: PANTOPRAZOLE SODIUM 40 MG VIAL IVPUSH SCH (09:07)
[2018-08-15] MEDS ORDERED: CEPHALEXIN MONOHYDRATE 500 MG CAPSULE (UD) PO SCH (10:00)
[2018-08-15 14:21] LABS: TRANSGLUTAMINASE IGA < 2 U/mL (0-3); TRANSGLUTAMINASE IGG 6 U/mL (0-5)
--- NOTE | 2018-08-15 15:30 | PN ---
Teaching Attending Note Name of Resident: Emmett Kim ATTENDING PHYSICIAN STATEMENT I saw and evaluated the patient. I reviewed the resident's note and discussed the case with the resident. I agree with the resident's findings and plan as documented. SUBJECTIVE: No fever or chills. No abd pain , NO N/V OBJECTIVE: NAD, comfortable CV: RRR, no MRG Lungs: CTAB Ext : no edema or erythema Abd: soft, NT, ND , NL BS , no hepatosplenomegaly. NL BS . Assesment and plan : Pleasant 47 y/o lady with h/o significant for recent ER visits for abd pain N/V , who presented with same sx in addition to diarrhea . 1- Abd pain, N/V, and diarrhea: unclear of etiology, could be in association with PNA . resolved . - Gi series normal - cont pPI - if sx recur in future , then she might need EGD 2- Community acquired PNA: - received 2 days of azithro, day 1 of keflex. cont for 2 more days Dc home today
--- NOTE | 2018-08-15 16:19 | DS ---
Physical Exam: SUBJECTIVE: Patient seen and examined at bedside this morning. Denies any acute complaints. Denies fevers, chills, shortness of breath, chest pain, palpitations , abdominal pain, nausea, vomiting, diarrhea, constipation. OBJECTIVE: Vital Signs Period Temp Pulse Resp BP Sys/[place] Pulse Ox Last 24 Hr 97.9 F-98.4 F 67-104 18-20 108-127/62-75 97 PHYSICAL EXAM GENERAL: The patient is awake, alert, and fully oriented, in no acute distress. Thin female, appear stated age. HEAD: Normocephlic, atraumatic. EYES: PERRLA, extraocular movements intact b/l. Sclera anicteric, conjunctiva clear without injection b/l. ENT: Oropharynx clear without exudates, moist mucous membranes. NECK: Supple without lymphadenoopathy. LUNGS: Good inspiratory effort and air entry b/l. Breath sounds equal, clear to auscultation bilaterally, no wheezes, no crackles, no accessory muscle use. HEART: Regular rate and rhythm, S1, S2 without murmur, rub or gallop. ABDOMEN: Soft, nontender to light and deep palpation X4 quadrants, nondistended. Normoactive bowel sounds. No guarding, no rebound tenderness. No hepatosplenomegaly. EXTREMITIES: 2+ radial and dorsalis pedis pulses b/l. Warm, well-perfused, no lower extremity edema b/l. NEUROLOGICAL: Cranial nerves II through XII grossly intact. Normal speech. Strength 5/5 b/l upper and lower extremities. PSYCH: Normal mood, normal affect upon my encounter today. SKIN: Warm, dry. LABS Laboratory Results - last 24 hr 08/14/18 08/15/18 08/15/18 06:45 06:45 06:45 WBC 2.9 L RBC 4.44 Hgb 12.9 Hct 38.5 MCV 86.8 MCH 29.0 MCHC 33.4 RDW 13.2 Plt Count 195 MPV 8.0 Sodium 142 Potassium 4.0 Chloride 109 H Carbon Dioxide 29 Anion Gap 4 L BUN 3 L Creatinine 0.6 Creat Clearance w eGFR > 60 Random Glucose 86 Calcium 8.3 L Total Bilirubin 0.5 AST 16 ALT 20 Alkaline Phosphatase 70 Total Protein 6.8 Albumin 3.2 L Tiss Transglutamin IgG 6 H Tiss Transglutamin IgA < 2 HOSPITAL COURSE: Date of Admission:08/13/18 Date of Discharge: 08/15/18 Patient is a 58 year old female with no significant medical history presents with complaint of abdominal pain, nausea, vomiting, and diarrhea. CT abdomen pelvis showed no acute abdominal pathology. US RUQ showed no cholecystitis. Started on protonix, reglan. Patient endorsed cough with yellow-white sputum, and started on azithromycin for community acquired pneumonia. She did not want endoscopy, so upper GI series was ordered. Unable to rule out gastroparesis. Patient discharged home to follow up with primary care physician, and GI within one week. To follow up stool for ova and parasites, and tissue transglutaminase AB. To continue Keflex for two more days, completing 5 days course, and protonix for two weeks.. Minutes to complete discharge: 35 Discharge Summary Reason For Visit: ABDOMINAL PAIN, PANCREATITIS Current Active Problems Abdominal pain (Acute) Diarrhea (Acute) Epigastric pain (Acute) Unable to eat (Acute) Vomiting (Acute) Condition: Stable - Instructions Diet, Activity, Other Instructions: You were admitted for abdominal pain nausea, vomiting, and diarrhea. Your CAT scan showed no acute process within your abdomen. Your ultrasound showed no stones or fluid within the gallbladder Your Xray showed normal exam You are being discharged to follow up with the [employer] [facility] (Dr. Collins) within one week after discharge. You will follow up regarding the blood work for Celiac Disease done while in the hospital (Tissue Transglutaminase) In addition, you will need stool studies for ova and parasites. A prescription has been provided for you. It is important that you follow up with your primary care physician (Dr. Johnson ) within the next 2-3 days, as soon as possible. You will complete antibiotic Keflex 500mg every 12 hours for the next two days ( 4 capsules total prescribed) for a likely pneumonia (infection of your lungs). Please return to the nearest emergency department if you experience any fevers, chills, worsening abdominal pain, nausea, vomiting, falls, loss of consciousness. take protonix x 14 days . sent to your pharmacy Referrals: Ryder Collins MD [Staff Physician] - 1 Week Jose Martin Johnson FNP [Primary Care Provider] - 08/17/18 Disposition: HOME - Home Medications Comprehensive Discharge Medication List: Ambulatory Orders Cephalexin Monohydrate [Keflex -] 500 mg PO Q12H 2 Days #4 capsule 08/15/18 Miscellaneous Medical Supply [Outpatient Order] 1 each ASDIR #1 misc Pantoprazole Sodium [Protonix] 40 mg PO DAILY #14 tablet. 08/15/18 This patient is new to me today: No Emergency Visit: Yes ED Registration Date: 08/13/18 Care time: The patient presented to the Emergency Department on the above date and was hospitalized for further evaluation of their emergent condition. Critical Care patient: No - Discharge Referral Referred to [facility] Med P.C.: Yes Physician Referral: Shad Pope DO (GI)
[2018-08-15 16:25] VITALS: BP 125/81; PULSE 78; TEMP 98.3
--- NOTE | 2018-08-15 16:26 | PN ---
GI Progress Note Subjective: No acute events UGIS/SBS normal Tolerated food today - Objective Vital Signs: Vital Signs Temperature 98.1 F 08/15/18 06:54 Pulse Rate 67 08/15/18 06:54 Respiratory Rate 20 08/15/18 06:54 Blood Pressure 108/62 08/15/18 06:54 O2 Sat by Pulse Oximetry (%) 97 08/14/18 21:00 Constitutional: Calm Eyes: No: Sclera Icterus Cardiovascular: Yes: Regular Rate and Rhythm Respiratory: Yes: CTA Bilaterally Gastrointestinal Inspection: No: Distention ...Auscultate: Yes: Normoactive Bowel Sounds ...Palpate: No: Hepatomegaly, Splenomegaly, Tenderness ...Percussion: No: Tympanitic Edema: No (No LE edema) Neurological: Yes: Alert, Oriented Labs: CBC, BMP 08/15/18 06:45 08/15/18 06:45 Problem List - Problems (1) Epigastric pain Assessment/Plan: Resolved and tolerating PO No objection to d/c home. I gave Ms. Mendez my business card to arrange follow-up COntinue Protonix 40mg once daily for 1 week then D/C Code(s): R10.13 - EPIGASTRIC PAIN
== END 2018-08-15 17:40 | disposition home or self-care (01) | DRG 391 ==
LOC: JER 22:23 → JERBED 08-13 03:44 → J7W 08-13 21:03
PROVIDERS: ADMIT Internal Medicine; ATTEND Internal Medicine
DX: K52.9 Noninfective gastroenteritis and colitis, unspecified (principal); J18.9 Pneumonia, unspecified organism; N39.0 Urinary tract infection, site not specified; R63.4 Abnormal weight loss; Z68.20 Body mass index [BMI] 20.0-20.9, adult; R10.9 Unspecified abdominal pain; R10.13 Epigastric pain; I95.9 Hypotension, unspecified; R00.0 Tachycardia, unspecified; R11.2 Nausea with vomiting, unspecified; D72.829 Elevated white blood cell count, unspecified; F50.89 Other specified eating disorder; Z86.19 Personal history of other infectious and parasitic diseases; K31.84 Gastroparesis
CPT/HCPCS: 36415; 71046-TC-FY; 74018-TC-FY; 74176-TC; 74245-TC-FY; 76705-TC; 80053; 81003; 82150; 83516; 83690; 83735; 84100; 84443; 84484; 84703; 85025; 85027; 86140; 87086; 87899; 93005; 93010; 99284-25; J0131; J1644; J7030

== ENCOUNTER 2018-09-25 12:05 | Emergency (ER) | payer OTHER ==
--- NOTE | 2018-09-25 12:17 | PDOC ---
History of Present Illness - General Chief Complaint: Injury Stated Complaint: LEFT FOOT PAIN Time Seen by Provider: 09/25/18 12:17 - History of Present Illness Initial Comments: 09/25/18 12:52 47yo female with L foot pain. Pt states she inverted her foot last night while at work. States she was able to walk home and the foot hurt, but was able to make it home from work. States she took Tylenol last night for pain. Pt states this AM when she woke up she had worsening pain and swelling to L lateral foot. Pain along 4th and 5th metatarsals. Pt denies paresthesias. Pt is able to wiggle her toes. Sensation is intact. Brisk cap refill distal. Pedal pulses intact. Pt denies prior injury to the foot. Pmhx: denies Pshx: c section x 3 and tubal ligation Allergies: NKDA FDLMP - last week Past History - Past Medical History Allergies/Adverse Reactions: Allergies Allergy/AdvReac Type Severity Reaction Status Date / Time No Known Allergies Allergy Verified 09/25/18 12:15 Home Medications: Ambulatory Orders Ibuprofen [Motrin -] 600 mg PO TID PRN #21 tablet 09/25/18 Anemia: No Asthma: No Cancer: No Cardiac Disorders: No CVA: No COPD: No CHF: No Dementia: No Diabetes: No GI Disorders: Yes (GASTRITIS) Disorders: No HTN: No Hypercholesterolemia: No Liver Disease: No Seizures: No Thyroid Disease: No - Surgical History Abdominal Surgery: No Appendectomy: Yes Cardiac Surgery: No Cholecystectomy: No Lung Surgery: No Neurologic Surgery: No Orthopedic Surgery: No - Suicide/Smoking/Psychosocial Hx Smoking History: Never smoked Have you smoked in the past 12 months: No Hx Alcohol Use: Yes (rare) Drug/Substance Use Hx: No Substance Use Type: None Hx Substance Use Treatment: No Review of Systems - Review of Systems Able to Perform ROS?: Yes Is the patient limited Kazakh proficient: No Constitutional: No: Chills, Fever Respiratory: No: Cough, Shortness of Breath Cardiac (ROS): No: Chest Pain ABD/GI: No: Diarrhea, Nausea, Vomiting Musculoskeletal: Yes: Joint Pain, Joint Swelling, Other (L foot pain). No: Back Pain Integumentary: Yes: Bruising (L lateral foot) Neurological: No: Headache, Numbness, Paresthesia, Tingling, Weakness All Other Systems: Reviewed and Negative *Physical Exam - Vital Signs 09/25/18 12:55 Selected Entries 09/25/18 12:12 Temperature 98.3 F Pulse Rate 84 Respiratory 15 Rate Blood Pressure 133/68 Blood Pressure 89 Mean O2 Sat by Pulse 100 Oximetry (%) Weight 58.06 kg - Physical Exam General Appearance: Yes: Nourished, Appropriately Dressed. No: Apparent Distress HEENT: positive: EOMI, Normal Voice Neck: positive: Supple Respiratory/Chest: positive: Lungs Clear, Normal Breath Sounds. negative: Respiratory Distress Cardiovascular: positive: Regular Rhythm, Regular Rate, S1, S2. negative: Edema Gastrointestinal/Abdominal: positive: Normal Bowel Sounds, Flat, Soft. negative : Guarding, Rebound, Tenderness Musculoskeletal: positive: Normal Inspection. negative: CVA Tenderness Extremity: positive: Normal Capillary Refill, Tender (L 4th and 5th metatarsal ttp, ecchymosis and bruising over 4th and 5th metatarsal, ttp over entire L 5th metatarsal, no malleoli ttp, FROM of the ankle, pedal pulses intact b/l, brisk cap refill and sensation/muscle strength intact distal to injury) Integumentary: positive: Ecchymosis (L foot) Neurologic: positive: Fully Oriented, Alert, Normal Mood/Affect, Motor Strength 5/5 Procedures - Splinting Splint Location: Left: Foot Pre-Proc Neuro Vasc Exam: normal Hand-Made Type: orthoglass Splint Type: Yes: Short Leg Post-Proc Neuro Vasc Exam: normal Mathew Bandage: 3", 4" Sling: No Complications: No Progress: 09/25/18 13:32 pt tolerated the procedure well Medical Decision Making - Medical Decision Making 09/25/18 12:57 a/p: 47yo female with L foot injury and pain -suspect fracture to L 4th and 5th metatarsal -will obtain xray -motrin -will monitor and reassess -will give ICE/elevate the foot 09/25/18 13:31 proximal 5th metatarsal fx on xray placed in splint. will give crutches requesting only motrin for pain will need orthopedic follow up 09/25/18 13:49 ucg negative *DC/Admit/Observation/Transfer Diagnosis at time of Disposition: Fracture of 5th metatarsal - Discharge Dispostion Disposition: HOME Condition at time of disposition: Stable Decision to Admit order: No - Prescriptions Prescriptions: Ibuprofen [Motrin -] 600 mg PO TID PRN #21 tablet PRN Reason: Pain - Referrals Referrals: Gabriel Jaramillo MD [Staff Physician] - Angel Jacques MD [Staff Physician] - - Patient Instructions Printed Discharge Instructions: How to Use Crutches, DI for Foot Fracture Additional Instructions: Please RICE the foot - Rest, Ice, Compression, Elevation. Please do not get the splint wet. Please make an appointment to see the orthopedist. Please follow up with your PMD. Please take motrin as needed with food or milk for pain control. - Post Discharge Activity Forms/Work/School Notes: Back to Work
[2018-09-25 12:22] VITALS: BP 133/68; PULSE 84; TEMP 98.3; BMI 20.6
[2018-09-25] MEDS ORDERED: IBUPROFEN 600 MG TABLET (FP) PO ONE ×2 (12:28→12:46)
== END 2018-09-25 14:03 | disposition home or self-care (01) ==
LOC: FER 12:05
PROC: 2W3RX1Z Immobilization of Left Lower Leg using Splint (ICD-10-PCS; principal; 2018-09-25)
DX: S92.352A Displaced fracture of fifth metatarsal bone, left foot, initial encounter for closed fracture (principal); X58.XXXA Exposure to other specified factors, initial encounter; Y93.01 Activity, walking, marching and hiking; Y92.89 Other specified places as the place of occurrence of the external cause
CPT/HCPCS: 73630-TC-LT; 84703; 99282-25

== ENCOUNTER 2021-11-09 08:28 | Emergency (ER) | payer OTHER ==
[2021-11-09 08:36] VITALS: BP 107/76; PULSE 78; TEMP 98.1; BMI 23.3
[2021-11-09] MEDS ORDERED: MECLIZINE HCL 25 MG TABLET (FP) PO ONE (08:49)
[2021-11-09] MEDS ORDERED: MECLIZINE HCL 25 MG TABLET (FP) ONE (08:52)
== END 2021-11-09 10:20 | disposition home or self-care (01) ==
LOC: FER 08:28
DX: R55 Syncope and collapse (principal)
CPT/HCPCS: 99283-25; C9803; U0003; U0005